=== PATIENT | female | born 1980 | race American Indian/Alaskan Native ===

== ENCOUNTER 2017-01-06 19:10 | Emergency (ER) | payer OTHER ==
[2017-01-06 19:36] VITALS: BP 172/120
[2017-01-06] MEDS ORDERED: CATAPRES PO ONE (19:37)
== END 2017-01-07 02:27 | disposition left against medical advice (07) ==
LOC: ED 19:10
DX: G43.909 Migraine, unspecified, not intractable, without status migrainosus (principal); R11.2 Nausea with vomiting, unspecified; Z53.21 Procedure and treatment not carried out due to patient leaving prior to being seen by health care provider

== ENCOUNTER 2017-01-11 21:08 | Emergency (ER) | payer SELFPAY ==
[2017-01-11] MEDS ORDERED: CATAPRES ONE (21:59)
[2017-01-11] MEDS ORDERED: TYLENOL ONE (21:59)
[2017-01-11] MEDS ORDERED: TYLENOL PO ONE (22:00)
[2017-01-11] MEDS ORDERED: CATAPRES PO ONE (22:00)
[2017-01-11 23:21] LABS: Basophils % (Auto) 0.8 % (0.0-1.8); Eosinophils % (Auto) 1.5 % (0.0-4.3); Hemoglobin 12.6 gm/dl (10.1-14.3); Mean Corpuscular HGB Conc 32 % (30-34); Mean Corpuscular Hemoglobin 27 pg (28-32); Mean Corpuscular Volume 82 fl (79-97); Platelet Count 278 K/mm3 (140-440); Red Blood Count 4.75 M/mm3 (3.65-5.03); Red Cell Distribution Width 13.8 % (13.2-15.2)
[2017-01-11 23:32] LABS: INR 0.97 (0.87-1.13)
[2017-01-11 23:33] LABS: Partial Thromboplastin Time 30.7 Sec. (24.2-36.6)
[2017-01-11 23:43] LABS: Anion Gap 15 mmol/L; BUN/Creatinine Ratio 16.66; Blood Urea Nitrogen 10 mg/dL (7-17); Calcium 9.4 mg/dL (8.4-10.2); Carbon Dioxide 28 mmol/L (22-30); Chloride 96.7 mmol/L (98-107); Glucose 92 mg/dL (65-100); Potassium 3.6 mmol/L (3.6-5.0); Sodium 136 mmol/L (137-145)
[2017-01-12] MEDS ORDERED: TORADOL IV ONE (02:29)
[2017-01-12] MEDS ORDERED: BENADRYL IV ONE (02:29)
[2017-01-12] MEDS ORDERED: REGLAN IV ONE (02:29)
[2017-01-12] MEDS ORDERED: NACL 0.9% 1000 ML 1,000 ML IV ONE (02:29)
--- NOTE | 2017-01-12 02:29 | Emergency Department Report ---
ED General Adult HPI - General Chief complaint: High BP Stated complaint: MIGRANE,TOOTHACHE,NUMBNESS Time Seen by Provider: 01/12/17 02:18 Source: patient, RN notes reviewed, old records reviewed Mode of arrival: Ambulatory Limitations: No Limitations - History of Present Illness Initial comments: This is a 36-year-old female. She is previously unknown to me. She does not have a local primary care doctor. The patient presents to the ER complaining of headache. The headache feels similar to prior migraines. The patient reports that she has a formally established diagnosis of migraines. The headache is not sudden or thunderclap in nature. It did not reach maximal intensity within an hour. It is not the worse headache of her life. Headache is frontal and bitemporal. It is intermittent for the past week. It worsens with exposure to light and loud sound. It is associated with numbness at the fingertips of her second, third, fourth digit. It is also associated with numbness on the dorsal aspect of her right foot. There is no proximal extremity weakness or numbness. There is no midline neck pain. There is no ataxia. There is no chest pain or shortness of breath. To me, the patient admits to chronic dental pain, but reports that this is not new, worse and different when compared to baseline. -: Gradual Location: head Severity scale (0 -10): 10 Quality: aching Consistency: constant Improves with: medication Worsens with: other (per hpi) Associated Symptoms: headaches. denies: confusion, chest pain, cough, diaphoresis, fever/chills, loss of appetite, malaise, rash, shortness of breath , syncope, weakness - Related Data Home Medications Medication Instructions Recorded Confirmed Last Taken Metoprolol [Lopressor TAB] 50 mg PO QDAY 06/06/16 06/07/16 06/07/16 09:00 Previous Rx's Medication Instructions Recorded Last Taken Type Cyclobenzaprine HCl [Flexeril 5 MG 5 mg PO Q8HR PRN #10 tab 06/06/16 06/07/16 09 :00 Rx TAB] Ketorolac [Toradol] 10 mg PO Q6H PRN #20 tablet 01/12/17 Unknown Rx Allergies Allergy/AdvReac Type Severity Reaction Status Date / Time morphine Allergy Angioedema Verified 06/07/16 08:56 ED Review of Systems ROS: Stated complaint: MIGRANE,TOOTHACHE,NUMBNESS Other details as noted in HPI Constitutional: denies: fever Eyes: denies: vision change ENT: denies: epistaxis Respiratory: denies: orthopnea Cardiovascular: denies: palpitations Gastrointestinal: denies: abdominal pain Genitourinary: denies: urgency Skin: denies: lesions Neurological: headache Psychiatric: anxiety ED Past Medical Hx - Past Medical History Previous Medical History?: Yes Hx Hypertension: Yes Hx Headaches / Migraines: Yes Hx Tuberculosis: Yes Additional medical history: heart murmur,various veins - Surgical History Past Surgical History?: Yes Hx Appendectomy: Yes Additional Surgical History: tubaligation,left carpel tunnel surgery - Social History Smoking Status: Never Smoker Substance Use Type: None - Medications Home Medications: Home Medications Medication Instructions Recorded Confirmed Last Taken Type Cyclobenzaprine HCl [Flexeril 5 MG 5 mg PO Q8HR PRN #10 tab 06/06/16 06/07/16 09:00 Rx TAB] Metoprolol [Lopressor TAB] 50 mg PO QDAY 06/06/16 06/07/16 06/07/16 09:00 History Ketorolac [Toradol] 10 mg PO Q6H PRN #20 tablet 01/12/17 Unknown Rx ED Physical Exam - General Limitations: No Limitations General appearance: alert, in no apparent distress - Head Head exam: Present: atraumatic, normocephalic - Eye Eye exam: Present: normal appearance, PERRL, EOMI, other (visual acuity intact to color perception, finger counting, reading at a close distance). Absent: nystagmus - ENT ENT exam: Present: normal exam, normal orophraynx, mucous membranes moist, normal external ear exam - Neck Neck exam: Present: normal inspection, full ROM. Absent: tenderness, meningismus - Respiratory Respiratory exam: Present: normal lung sounds bilaterally. Absent: respiratory distress, wheezes, rales, rhonchi, stridor, decreased breath sounds - Cardiovascular Cardiovascular Exam: Present: regular rate, normal rhythm, normal heart sounds. Absent: bradycardia, tachycardia, irregular rhythm, systolic murmur, diastolic murmur, rubs, gallop - GI/Abdominal GI/Abdominal exam: Present: soft, normal bowel sounds. Absent: distended, tenderness, guarding, rebound, rigid, pulsatile mass - Extremities Exam Extremities exam: Present: normal inspection, full ROM, normal capillary refill. Absent: tenderness, pedal edema, joint swelling, calf tenderness - Back Exam Back exam: Present: normal inspection, full ROM. Absent: tenderness, CVA tenderness (R), CVA tenderness (L), muscle spasm, paraspinal tenderness - Neurological Exam Neurological exam: Present: alert, oriented X3, normal gait, other (Extraocular movements intact. Tongue midline. No facial droop. Facial sensation intact to light touch in the V1, V2, V3 distribution bilaterally. 5 and 5 strength in 4 extremities.. Sensation is intact to light touch in 4 extremities.). Absent : motor sensory deficit - Psychiatric Psychiatric exam: Present: anxious - Skin Skin exam: Present: warm, dry, intact, normal color. Absent: rash ED Course Vital Signs 01/11/17 01/11/17 01/12/17 21:50 22:00 00:31 Temperature 97.2 F L Pulse Rate 86 86 85 Respiratory 20 20 Rate Blood Pressure 171/122 143/106 Blood Pressure 171/122 [Right] O2 Sat by Pulse 100 100 Oximetry 01/12/17 01/12/17 01/12/17 01:43 01:50 02:00 Temperature Pulse Rate 79 69 Respiratory 16 12 Rate Blood Pressure 146/99 147/102 Blood Pressure [Right] O2 Sat by Pulse 100 100 100 Oximetry 01/12/17 01/12/17 01/12/17 02:10 02:20 02:30 Temperature Pulse Rate 65 65 70 Respiratory 13 13 13 Rate Blood Pressure 147/102 147/102 138/99 Blood Pressure [Right] O2 Sat by Pulse 100 100 100 Oximetry 01/12/17 01/12/17 01/12/17 02:40 02:50 03:00 Temperature Pulse Rate 80 85 82 Respiratory 17 14 13 Rate Blood Pressure 147/102 147/102 142/98 Blood Pressure [Right] O2 Sat by Pulse 100 100 97 Oximetry 01/12/17 01/12/17 03:10 03:20 Temperature Pulse Rate 73 70 Respiratory 11 L 11 L Rate Blood Pressure 142/98 142/98 Blood Pressure [Right] O2 Sat by Pulse 100 100 Oximetry - Reevaluation(s) Reevaluation #1: 01/12/17 03:48 Differential diagnosis: Migraine headache, tension headache, cluster headache, nonspecific headache syndrome, elevated blood pressure/incidental hypertension Assessment and plan: 36-year-old female with headache and numbness in her fingertips and dorsal foot. Currently has a GCS of 15, NIH score of 0. Sensation intact to light touch, pinprick and proprioception in 4 extremities. The patient felt markedly improved after symptomatic therapy. A repeat neurologic examination is unremarkable, and she is resting comfortably at the time. She has no chest pain or shortness of breath, she can follow up with an outpatient primary care doctor for her elevated blood pressure, outpatient dentist for her chronic dental pain. She will be discharged at this time. Return precautions are reviewed. EKG is ordered by nurse prior to my evaluation , patient not having any chest pain or shortness of breath, patient is young, does not have any pulmonary embolus or DVT risk factors, is low risk by well's criteria, perc negative, low risk by DAVION score. 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 Reevaluation #2: 01/12/17 03:52 patient states she is not ED Medical Decision Making - Lab Data Result diagrams: 01/11/17 23:00 01/11/17 23:00 Vital Signs 01/11/17 01/11/17 01/12/17 21:50 22:00 00:31 Temperature 97.2 F L Pulse Rate 86 86 85 Respiratory 20 20 Rate Blood Pressure 171/122 143/106 Blood Pressure 171/122 [Right] O2 Sat by Pulse 100 100 Oximetry 01/12/17 01/12/17 01/12/17 01:43 01:50 02:00 Temperature Pulse Rate 79 69 Respiratory 16 12 Rate Blood Pressure 146/99 147/102 Blood Pressure [Right] O2 Sat by Pulse 100 100 100 Oximetry 01/12/17 01/12/17 01/12/17 02:10 02:20 02:30 Temperature Pulse Rate 65 65 70 Respiratory 13 13 13 Rate Blood Pressure 147/102 147/102 138/99 Blood Pressure [Right] O2 Sat by Pulse 100 100 100 Oximetry 01/12/17 01/12/17 01/12/17 02:40 02:50 03:00 Temperature Pulse Rate 80 85 82 Respiratory 17 14 13 Rate Blood Pressure 147/102 147/102 142/98 Blood Pressure [Right] O2 Sat by Pulse 100 100 97 Oximetry 01/12/17 01/12/17 01/12/17 03:10 03:20 03:30 Temperature Pulse Rate 73 70 67 Respiratory 11 L 11 L 11 L Rate Blood Pressure 142/98 142/98 135/95 Blood Pressure [Right] O2 Sat by Pulse 100 100 100 Oximetry 01/12/17 03:40 Temperature Pulse Rate 67 Respiratory 10 L Rate Blood Pressure 135/95 Blood Pressure [Right] O2 Sat by Pulse 100 Oximetry Lab Results 01/11/17 01/11/17 01/11/17 Range/Units 23:00 23:00 23:00 WBC 8.0 (4.5-11.0) K/mm3 RBC 4.75 (3.65-5.03) M/mm3 Hgb 12.6 (10.1-14.3) gm/dl Hct 39.0 (30.3-42.9) % MCV 82 (79-97) fl MCH 27 L (28-32) pg MCHC 32 (30-34) % RDW 13.8 (13.2-15.2) % Plt Count 278 (140-440) K/mm3 Lymph % (Auto) 26.7 (13.4-35.0) % Barbour % (Auto) 6.8 (0.0-7.3) % Eos % (Auto) 1.5 (0.0-4.3) % Baso % (Auto) 0.8 (0.0-1.8) % Lymph # 2.1 (1.2-5.4) K/mm3 Barbour # 0.5 (0.0-0.8) K/mm3 Eos # 0.1 (0.0-0.4) K/mm3 Baso # 0.1 (0.0-0.1) K/mm3 Seg Neutrophils % 64.2 (40.0-70.0) % Seg Neutrophils # 5.1 (1.8-7.7) K/mm3 PT 12.8 (12.2-14.9) Sec. INR 0.97 (0.87-1.13) APTT 30.7 (24.2-36.6) Sec. Sodium 136 L (137-145) mmol/L Potassium 3.6 (3.6-5.0) mmol/L Chloride 96.7 L (98-107) mmol/L Carbon Dioxide 28 (22-30) mmol/L Anion Gap 15 mmol/L BUN 10 (7-17) mg/dL Creatinine 0.6 L (0.7-1.2) mg/dL Estimated GFR > 60 ml/min BUN/Creatinine Ratio 16.66 % Glucose 92 (65-100) mg/dL Calcium 9.4 (8.4-10.2) mg/dL Troponin T < 0.010 (0.00-0.029) ng/mL HCG, Qual (Negative) 01/11/17 01/12/17 Range/Units 23:00 01:03 WBC (4.5-11.0) K/mm3 RBC (3.65-5.03) M/mm3 Hgb (10.1-14.3) gm/dl Hct (30.3-42.9) % MCV (79-97) fl MCH (28-32) pg MCHC (30-34) % RDW (13.2-15.2) % Plt Count (140-440) K/mm3 Lymph % (Auto) (13.4-35.0) % Barbour % (Auto) (0.0-7.3) % Eos % (Auto) (0.0-4.3) % Baso % (Auto) (0.0-1.8) % Lymph # (1.2-5.4) K/mm3 [place]bour # (0.0-0.8) K/mm3 Eos # (0.0-0.4) K/mm3 Baso # (0.0-0.1) K/mm3 Seg Neutrophils % (40.0-70.0) % Seg Neutrophils # (1.8-7.7) K/mm3 PT (12.2-14.9) Sec. INR (0.87-1.13) APTT (24.2-36.6) Sec. Sodium (137-145) mmol/L Potassium (3.6-5.0) mmol/L Chloride (98-107) mmol/L Carbon Dioxide (22-30) mmol/L Anion Gap mmol/L BUN (7-17) mg/dL Creatinine (0.7-1.2) mg/dL Estimated GFR ml/min BUN/Creatinine Ratio % Glucose (65-100) mg/dL Calcium (8.4-10.2) mg/dL Troponin T < 0.010 (0.00-0.029) ng/mL HCG, Qual Negative (Negative) - EKG Data -: EKG Interpreted by Me Rate: normal - EKG Data 01/12/17 03:50 Normal sinus, 69 beats per minute, normal intervals, normal axis, T-wave inversion V2 and V3. Abnormal EKG, not morphologically consistent with STEMI. Critical care attestation.: If time is entered above; I have spent that time in minutes in the direct care of this critically ill patient, excluding procedure time. ED Disposition Clinical Impression: Headache, Elevated blood pressure Disposition: DISCHARGED TO HOME OR SELFCARE Is pt being admited?: No Does the pt Need Aspirin: No Condition: Stable Instructions: Acute Headache (ED), Hypertension (ED) Additional Instructions: Take the pain medication as directed. Follow up with a primary care doctor within the next 10-14 days. Please note that blood pressure was elevated. It is very important to closely follow up with an outpatient primary care doctor for your hypertension/elevated blood pressure. Complications of hypertension/ elevated blood pressure includes stroke, heart attack, disability, , paralysis, loss of quality of life. Dr. Roberto Coley is a local primary care doctor. Follow-up with the neurology specialist within the next month for headaches. Dr. Lucio is a local neurology specialist. EKG demonstrated nonspecific abnormalities, which may be normal for your age. However, you should follow up with either your primary care doctor or motorcycle repair shop supervisor for your EKG abnormalities. Dr. Gutierrez is a local motorcycle repair shop supervisor. Follow-up with the senior accounting specialist within the next 2-3 weeks for your abnormal EKG. Return to the ER right away with new pain, worsened pain, migration of pain, fevers or chills, intractable nausea or vomiting, inability to tolerate liquid feeds. Referrals: PRIMARY CARE, [Primary Care Provider] - 3-5 Days ROBERTO COLEY MD [Staff Physician] - 3-5 Days GRAHAM GUTIERREZ MD [Staff Physician] - 3-5 Days SEBAS LUCIO MD [Staff Physician] - 3-5 Days
[2017-01-12 03:49] VITALS: BP 135/95
== END 2017-01-12 04:09 | disposition home or self-care (01) ==
LOC: ED 21:08
DX: R51 Headache (principal); I10 Essential (primary) hypertension; G43.909 Migraine, unspecified, not intractable, without status migrainosus
CPT/HCPCS: 36415; 80048; 84484; 84703; 85025; 85610; 85730; 93005; 93010; 96361; 96374; 96375; 99284; J1200; J1885; J2765; J7030

== ENCOUNTER 2017-06-06 13:27 | Emergency (ER) | payer OTHER ==
[2017-06-06 14:31] LABS: Basophils % (Auto) 0.7 % (0.0-1.8); Hematocrit 39.8 % (30.3-42.9); Hemoglobin 13.1 gm/dl (10.1-14.3); Mean Corpuscular HGB Conc 33 % (30-34); Mean Corpuscular Hemoglobin 26 pg (28-32); Mean Corpuscular Volume 80 fl (79-97); Platelet Count 246 K/mm3 (140-440); Red Blood Count 4.95 M/mm3 (3.65-5.03); Red Cell Distribution Width 13.9 % (13.2-15.2); White Blood Count 6.8 K/mm3 (4.5-11.0)
[2017-06-06 14:38] LABS: Bilirubin,Urine NEG (Negative); Blood,Urine SM (Negative); Ketones,Urine NEG (Negative); Leukocyte Esterase,Urine NEG (Negative); Mucus,Urine FEW /HPF; Nitrite,Urine NEG (Negative); Protein,Urine <15 mg/dL mg/dL (Negative); Urobilinogen,Urine < 2.0 mg/dL (<2.0); WBC,Urine < 1.0 /HPF (0.0-6.0)
[2017-06-06 14:54] LABS: Alanine Aminotransferase 23 units/L (7-56); Albumin 4.5 g/dL (3.9-5); Albumin/Globulin Ratio 1.5 %; Alkaline Phosphatase 52 units/L (35-129); Anion Gap 19 mmol/L; BUN/Creatinine Ratio 14.28; Blood Urea Nitrogen 10 mg/dL (7-17); Calcium 8.8 mg/dL (8.4-10.2); Carbon Dioxide 25 mmol/L (22-30); Glucose 88 mg/dL (65-100); Lipase 26 units/L (13-60); Potassium 3.9 mmol/L (3.6-5.0); Sodium 139 mmol/L (137-145); Total Protein 7.5 g/dL (6.3-8.2)
--- NOTE | 2017-06-06 20:57 | Emergency Department Report ---
ED Abdominal Pain HPI - General Chief Complaint: Abdominal Pain Stated Complaint: POSS GALLSTONE Time Seen by Provider: 06/06/17 20:47 Source: patient, RN notes reviewed, old records reviewed Mode of arrival: Ambulatory Limitations: No Limitations - History of Present Illness Initial Comments: This is a 37-year-old female. I have previously evaluated her. She reports her [facility] doctor is Dr. Sen. She was sent to the ER to exclude small bowel obstruction. The patient complains of bilateral lower quadrant abdominal pain intermittently for one month. There is no vomiting or diaphoresis. There is no chest pain or shortness of breath. No irritative or obstructive urinary symptoms. The pain is achy, increases with palpation, decreases with rest. Patient denies vaginal bleeding, vaginal discharge, reports one partner, denies a history of STDs that she is aware of. MD Complaint: abdominal pain -: Gradual Location: LLQ, RLQ Migration to: no migration Severity scale (0 -10): 8 Quality: cramping, aching Consistency: intermittent Improves With: rest Worsens With: movement Associated Symptoms: denies: dysuria - Related Data Home Medications Medication Instructions Recorded Confirmed Last Taken Amitriptyline [Elavil] 25 mg PO QHS 06/06/17 06/06/17 06/05/17 Metoprolol [Lopressor TAB] 50 mg PO BID 06/06/17 06/06/17 06/06/17 cloNIDine [Catapres] 0.2 mg PO TID 06/06/17 06/06/17 06/06/17 Previous Rx's Medication Instructions Recorded Last Taken Type Ibuprofen [Motrin] 600 mg PO Q8H PRN #30 tablet 06/07/17 Unknown Rx Ondansetron [Zofran Odt] 4 mg PO QID PRN #20 tab.rapdis 06/07/17 Unknown Rx Polyethylene Glycol 3350 [Miralax 17 gm PO QDAY #30 packet 06/07/17 Unknown Rx 3350] Allergies Allergy/AdvReac Type Severity Reaction Status Date / Time morphine Allergy Angioedema Verified 06/06/17 20:36 ED Review of Systems ROS: Stated complaint: POSS GALLSTONE Other details as noted in HPI Constitutional: denies: fever Eyes: denies: vision change ENT: denies: epistaxis Respiratory: denies: cough Cardiovascular: denies: chest pain Gastrointestinal: abdominal pain, constipation Genitourinary: denies: dysuria Musculoskeletal: denies: back pain Skin: denies: lesions ED Past Medical Hx - Past Medical History Previous Medical History?: Yes Hx Hypertension: Yes Hx Congestive Heart Failure: No Hx Diabetes: No Hx Headaches / Migraines: Yes (migraines) Hx Asthma: No Hx Tuberculosis: Yes Additional medical history: heart murmur,various veins - Surgical History Past Surgical History?: Yes Hx Appendectomy: Yes Additional Surgical History: tubaligation,left carpel tunnel surgery - Social History Smoking Status: Never Smoker Substance Use Type: None - Medications Home Medications: Home Medications Medication Instructions Recorded Confirmed Last Taken Type Amitriptyline [Elavil] 25 mg PO QHS 06/06/17 06/06/17 06/05/17 History Metoprolol [Lopressor TAB] 50 mg PO BID 06/06/17 06/06/17 06/06/17 History cloNIDine [Catapres] 0.2 mg PO TID 06/06/17 06/06/17 06/06/17 History Ibuprofen [Motrin] 600 mg PO Q8H PRN #30 tablet 06/07/17 Unknown Rx Ondansetron [Zofran Odt] 4 mg PO QID PRN #20 tab.rapdis 06/07/17 Unknown Rx Polyethylene Glycol 3350 [Miralax 17 gm PO QDAY #30 packet 06/07/17 Unknown Rx 3350] ED Physical Exam - General Limitations: No Limitations General appearance: alert, in no apparent distress - Head Head exam: Present: atraumatic, normocephalic - Eye Eye exam: Present: normal appearance, EOMI. Absent: nystagmus - ENT ENT exam: Present: normal exam, normal orophraynx, mucous membranes moist, normal external ear exam - Neck Neck exam: Present: normal inspection, full ROM. Absent: tenderness, meningismus - Respiratory Respiratory exam: Present: normal lung sounds bilaterally. Absent: respiratory distress, wheezes, rales, rhonchi, stridor, chest wall tenderness, accessory muscle use, decreased breath sounds - Cardiovascular Cardiovascular Exam: Present: regular rate, normal rhythm. Absent: bradycardia , tachycardia, irregular rhythm, systolic murmur, diastolic murmur, rubs, gallop - GI/Abdominal GI/Abdominal exam: Present: soft, tenderness (there is right lower quadrant, suprapubic and left lower quadrant tenderness), normal bowel sounds. Absent: distended, guarding, rebound, rigid - External exam: Present: normal external exam Speculum exam: Present: normal speculum exam Bi-manual exam: Present: cervical motion tendernes, adnexal tenderness (there is right-sided adnexal tenderness), uterine tenderness, other (escorted by SINGH Canales) - Extremities Exam Extremities exam: Present: normal inspection, full ROM, normal capillary refill. Absent: pedal edema, joint swelling, calf tenderness - Back Exam Back exam: Present: normal inspection, full ROM. Absent: tenderness, CVA tenderness (R), CVA tenderness (L), muscle spasm, paraspinal tenderness, vertebral tenderness - Neurological Exam Neurological exam: Present: alert, oriented X3, normal gait, other (Extraocular movements intact. Tongue midline. No facial droop. Facial sensation intact to light touch in the V1, V2, V3 distribution bilaterally. 5 and 5 strength in 4 extremities.. Sensation is intact to light touch in 4 extremities.). Absent : motor sensory deficit - Psychiatric Psychiatric exam: Present: normal affect, normal mood - Skin Skin exam: Present: warm, dry, intact, normal color. Absent: rash ED Course Vital Signs 06/06/17 06/06/17 06/06/17 13:46 20:38 21:00 Temperature 98.1 F Pulse Rate 88 90 80 Respiratory 18 20 20 Rate Blood Pressure 169/115 Blood Pressure 175/122 144/99 [Left] O2 Sat by Pulse 100 100 100 Oximetry 06/06/17 23:51 Temperature Pulse Rate 79 Respiratory 18 Rate Blood Pressure Blood Pressure 152/96 [Left] O2 Sat by Pulse 98 Oximetry ED Medical Decision Making - Lab Data Result diagrams: 06/06/17 14:12 06/06/17 14:12 Vital Signs 06/06/17 06/06/17 06/06/17 13:46 20:38 21:00 Temperature 98.1 F Pulse Rate 88 90 80 Respiratory 18 20 20 Rate Blood Pressure 169/115 Blood Pressure 175/122 144/99 [Left] O2 Sat by Pulse 100 100 100 Oximetry 06/06/17 23:51 Temperature Pulse Rate 79 Respiratory 18 Rate Blood Pressure Blood Pressure 152/96 [Left] O2 Sat by Pulse 98 Oximetry Lab Results 06/06/17 06/06/17 06/06/17 Range/Units 14:07 14:07 14:12 WBC 6.8 (4.5-11.0) K/mm3 RBC 4.95 (3.65-5.03) M/mm3 Hgb 13.1 (10.1-14.3) gm/dl Hct 39.8 (30.3-42.9) % MCV 80 (79-97) fl MCH 26 L (28-32) pg MCHC 33 (30-34) % RDW 13.9 (13.2-15.2) % Plt Count 246 (140-440) K/mm3 Lymph % (Auto) 31.8 (13.4-35.0) % Adams % (Auto) 7.4 H (0.0-7.3) % Eos % (Auto) 2.0 (0.0-4.3) % Baso % (Auto) 0.7 (0.0-1.8) % Lymph # 2.2 (1.2-5.4) K/mm3 Adams # 0.5 (0.0-0.8) K/mm3 Eos # 0.1 (0.0-0.4) K/mm3 Baso # 0.0 (0.0-0.1) K/mm3 Seg Neutrophils % 58.1 (40.0-70.0) % Seg Neutrophils # 4.0 (1.8-7.7) K/mm3 Sodium (137-145) mmol/L Potassium (3.6-5.0) mmol/L Chloride (98-107) mmol/L Carbon Dioxide (22-30) mmol/L Anion Gap mmol/L BUN (7-17) mg/dL Creatinine (0.7-1.2) mg/dL Estimated GFR ml/min BUN/Creatinine Ratio % Glucose (65-100) mg/dL Calcium (8.4-10.2) mg/dL Total Bilirubin (0.1-1.2) mg/dL AST (5-40) units/L ALT (7-56) units/L Alkaline Phosphatase (35-129) units/L Total Protein (6.3-8.2) g/dL Albumin (3.9-5) g/dL Albumin/Globulin Ratio % Lipase (13-60) units/L HCG, Quant (0-4) mIU/mL Urine Color Straw (Yellow) Urine Turbidity Clear (Clear) Urine pH 6.0 (5.0-7.0) Ur Specific Marcellus 1.009 (1.003-1.030) Urine Protein <15 mg/dl (Negative) mg/dL Urine Glucose (UA) Neg (Negative) mg/dL Urine Ketones Neg (Negative) mg/dL Urine Blood Sm (Negative) Urine Nitrite Neg (Negative) Urine Bilirubin Neg (Negative) Urine Urobilinogen < 2.0 (<2.0) mg/dL Ur Leukocyte Esterase Neg (Negative) Urine WBC (Auto) < 1.0 (0.0-6.0) /HPF Urine RBC (Auto) 1.0 (0.0-6.0) /HPF U Epithel Cells (Auto) < 1.0 (0-13.0) /HPF Urine Mucus Few /HPF Urine HCG, Qual Negative (Negative) 06/06/17 06/06/17 Range/Units 14:12 21:30 WBC (4.5-11.0) K/mm3 RBC (3.65-5.03) M/mm3 Hgb (10.1-14.3) gm/dl Hct (30.3-42.9) % MCV (79-97) fl MCH (28-32) pg MCHC (30-34) % RDW (13.2-15.2) % Plt Count (140-440) K/mm3 Lymph % (Auto) (13.4-35.0) % Adams % (Auto) (0.0-7.3) % Eos % (Auto) (0.0-4.3) % Baso % (Auto) (0.0-1.8) % Lymph # (1.2-5.4) K/mm3 Adams # (0.0-0.8) K/mm3 Eos # (0.0-0.4) K/mm3 Baso # (0.0-0.1) K/mm3 Seg Neutrophils % (40.0-70.0) % Seg Neutrophils # (1.8-7.7) K/mm3 Sodium 139 (137-145) mmol/L Potassium 3.9 (3.6-5.0) mmol/L Chloride 99.0 (98-107) mmol/L Carbon Dioxide 25 (22-30) mmol/L Anion Gap 19 mmol/L BUN 10 (7-17) mg/dL Creatinine 0.7 (0.7-1.2) mg/dL Estimated GFR > 60 ml/min BUN/Creatinine Ratio 14.28 % Glucose 88 (65-100) mg/dL Calcium 8.8 (8.4-10.2) mg/dL Total Bilirubin 0.30 (0.1-1.2) mg/dL AST 19 (5-40) units/L ALT 23 (7-56) units/L Alkaline Phosphatase 52 (35-129) units/L Total Protein 7.5 (6.3-8.2) g/dL Albumin 4.5 (3.9-5) g/dL Albumin/Globulin Ratio 1.5 % Lipase 26 (13-60) units/L HCG, Quant < 2 (0-4) mIU/mL Urine Color (Yellow) Urine Turbidity (Clear) Urine pH (5.0-7.0) Ur Specific Marcellus (1.003-1.030) Urine Protein (Negative) mg/dL Urine Glucose (UA) (Negative) mg/dL Urine Ketones (Negative) mg/dL Urine Blood (Negative) Urine Nitrite (Negative) Urine Bilirubin (Negative) Urine Urobilinogen (<2.0) mg/dL Ur Leukocyte Esterase (Negative) Urine WBC (Auto) (0.0-6.0) /HPF Urine RBC (Auto) (0.0-6.0) /HPF U Epithel Cells (Auto) (0-13.0) /HPF Urine Mucus /HPF Urine HCG, Qual (Negative) - Radiology Data Radiology results: report reviewed, image reviewed CT scan demonstrates constipation. Appendix not identified, however no secondary signs of appendicitis. Pelvic ultrasound demonstrates nonspecific lesion on the uterus, may be a fibroid, tumor/emergency is not excluded. - Medical Decision Making Differential diagnosis: Ovarian cyst, ovarian torsion, appendicitis, pelvic inflammatory disease, urinary tract infection, constipation Assessment and plan: 37-year-old female with 2 weeks of intermittent cramping abdominal discomfort, patient indicates "it feels like something is moving inside of me." She had mild lower abdominal tenderness, with no rebound, guarding or peritoneal signs. CT scan demonstrates no evidence of appendicitis, the appendix itself is not identified. I highly doubt appendicitis given 2 weeks of symptoms and presence of constipation. History and physical as well as CT scan not consistent with bowel obstruction. Doubt pelvic inflammatory disease, however gonorrhea chlamydia is sent. Patient feels improved after pain medication, she is given copies of her ultrasound and CT scan report, and she is instructed to follow-up with her outpatient primary care pantry cook. She understands and not following up in a timely fashion may result an undiagnosed tumor/cancer/malignancy. Patient will be discharged at this time. Ovaries appear to be morphologically normal on ultrasound, there is no left-sided adnexal tenderness, given 2 weeks of symptoms, ultrasound findings, torsion very unlikely. Critical care attestation.: If time is entered above; I have spent that time in minutes in the direct care of this critically ill patient, excluding procedure time. ED Disposition Clinical Impression: Abdominal pain Disposition: - TO HOME OR SELFCARE Is pt being admited?: No Does the pt Need Aspirin: No Condition: Stable Instructions: Constipation (ED), High Fiber Diet (ED) Additional Instructions: Cultures were sent today, results will be available in the next 3-5 days. Please have your primary care pantry cook contact the medical records department to obtain culture results. CT scan demonstrated evidence of constipation. Increase water consumption to 6-8 cups of water per day. Eat plenty of fruits, fibers, vegetables. Follow-up with the primary care doctor or pantry cook within the next week to 10 days. Ultrasound demonstrated nonspecific findings on the uterus and reproductive organs, and this needs to be followed up by her pantry cook as recommended. Not following up as recommended they results and undiagnosed tumor /cancer/malignancy. Return to the ER right away with new pain, worsened pain, migration of pain, fevers, chills, confusion, intractable nausea or vomiting, inability to tolerate liquid feeds. Referrals: PRIMARY CARE, [Primary Care Provider] - 3-5 Days [facility] [Provider Group] - 3-5 Days [facility] [Provider Group] - 3-5 Days [facility] [Provider Group] - 3-5 Days
[2017-06-06] MEDS ORDERED: NACL 0.9% 1000 ML 1,000 ML IV ONE (21:28)
[2017-06-06] MEDS ORDERED: TORADOL IV ONE (21:28)
[2017-06-06] MEDS ORDERED: NACL ONE (22:27)
--- NOTE | 2017-06-06 23:37 | Cat Scan Report ---
FINAL REPORT PROCEDURE: CT ABDOMEN PELVIS W CON TECHNIQUE: Computerized axial tomography of the abdomen and pelvis was performed after the IV injection of iodinated nonionic contrast. HISTORY: lower abd pain COMPARISON: No prior studies are available for comparison. FINDINGS: Tiny left pleural effusion is seen. 9 millimeter cyst is seen in the spleen. No hepatic abnormalities are seen. The gallbladder and pancreas appear normal. The adrenal glands and abdominal aorta are normal in size. 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 Bladder appears normal. Mild low-density free pelvic fluid is seen. Mild fluid is seen in the endometrial canal. Two follicles are suspected in the left ovary and there may be a few tiny follicles in the right ovary. Appendix is not seen but no pericecal inflammation is seen. There is prominent constipation in the ascending, transverse, and descending colon. Sigmoid colon is decompressed with a small amount of fecal material in the rectum. No evidence of small bowel obstruction is seen. IMPRESSION: There is prominent constipation. Mild fluid is seen in the endometrial canal and correlation with stage of patient's menstrual cycle is recommended. Follicles are seen in the ovaries.
--- NOTE | 2017-06-06 23:44 | Ultrasound Report ---
FINAL REPORT PROCEDURE: US TRANSVAGINAL TECHNIQUE: Real-time transabdominal sonography in multiple planes of the pelvis was performed. The pelvic structures were not optimally visualized. Transvaginal sonography was then performed to better evaluate the structures and/or abnormalities described below with image documentation. Grayscale, color flow Doppler imaging and velocity spectral waveform analysis of the ovaries was employed (duplex imaging). CPT 60417, 84279, and 68393 HISTORY: pelvic pain COMPARISON: CT exam from same day FINDINGS: Uterus measures 8.8 cm in length. Vague slightly hypervascular area is seen in the anterior aspect of the uterine myometrium. This could be a fibroid but is not well seen on this study. It is not definitely identified on prior CT exam, either. Malignancy is not completely excluded and correlation with MRI is recommended. 5 millimeter cystic area is seen in the posterior uterine myometrium in the right side of the uterus, near this hypovascular area. Endometrial thickness is 6.1 millimeters. Fluid is seen in the lower uterine segment and cervix. Correlation with stage of patient's menstrual cycle is recommended. Right ovary measures 2.8 x 1.3 x 1.8 cm. A 1.2 cm cyst is seen in the right ovary. Bowel gas obscures the left ovary. No free pelvic fluid is seen. Tiny nabothian cyst is seen in the cervix. IMPRESSION: Hypervascular 2.6 cm vague area is seen in the anterior right side of the uterus near the fundus. This could be a fibroid but is not well seen on CT exam. Malignancy cannot be excluded given the increased vascularity. An adjacent small cyst is seen in the myometrium measuring 5 millimeters. Follow-up unenhanced and enhanced MRI of the pelvis is recommended to better evaluate these findings.
[2017-06-07 00:49] VITALS: BP 152/99
--- NOTE | 2017-06-07 01:58 | Ultrasound Report ---
FINAL REPORT EXAM: US PELVIS DUPLEX DOPPLER COMP HISTORY: pelvic pain TECHNIQUE: Transabdominal sonography of the pelvis. PRIORS: Endovaginal pelvic ultrasound of same date. FINDINGS: Overlying bowel gas limits examination somewhat. The uterus measures 8.8 x 4.5 x 5.6 cm. Ill-defined, isoechoic and somewhat hypervascular focus in the right anterior uterus near the fundus, seen much better on comparison study. Subcentimeter, cystic focus in right posterior uterus near the fundus. The endometrial stripe is within normal limits and measures 6 mm in AP dimension. Small amount of anechoic fluid in lower uterine segment and endocervical canal, also seen better on comparison study. The right ovary measures 2.8 x 1.3 x 1.8 cm and contains probable prominent follicle measuring 1.2 cm. The left ovary is not confidently identified by the gear technician. No adnexal masses or significant free peritoneal fluid. IMPRESSION: 1. Ill-defined, isoechoic and somewhat hypervascular focus in the right anterior uterine fundal region and small cystic focus in right posterior fundal region seen much better on comparison endovaginal examination, which may represent leiomyomatous or adenomyosis change, but is nonspecific. Exact etiology or significance uncertain, and clinical correlation along with followup suggested. 2. Probable follicular change in the right ovary. 3. Nonvisualization of the left ovary.
--- NOTE | 2017-06-07 09:39 | XRay Report ---
ABDOMEN RADIOGRAPHS INDICATION: Abdominal pain. COMPARISON: None similar. FINDINGS: Frontal abdominal radiographs demonstrate nonobstructive bowel gas pattern without focal suspicious calcifications, pneumatosis or pneumoperitoneum. Moderate colonic stool/possible constipation. Clear visualized lung bases. Unremarkable bones. CONCLUSION: Constipation without acute radiographic abnormality. Please correlate. Thank you for the opportunity to participate in this patient's care.
== END 2017-06-07 01:12 | disposition home or self-care (01) ==
LOC: ED 13:27
DX: R10.32 Left lower quadrant pain (principal); R10.31 Right lower quadrant pain; I10 Essential (primary) hypertension; G43.909 Migraine, unspecified, not intractable, without status migrainosus; Z88.5 Allergy status to narcotic agent
CPT/HCPCS: 36415; 74020; 74177; 76830; 80053; 81001; 81025; 83690; 84702; 85025; 87210; 87591; 93975; 96361; 96374; 99285; J1885; J7030; Q9967

== ENCOUNTER 2017-12-12 18:15 | Emergency (ER) | payer OTHER ==
[2017-12-12] MEDS ORDERED: ZOFRAN ODT PO ONE (20:10)
[2017-12-12] MEDS ORDERED: TORADOL IM ONE (20:10)
--- NOTE | 2017-12-12 20:10 | Emergency Department Report ---
Blank Doc - Documentation Documentation: Patient is a 37-year-old black female said 2 weeks of lower abdominal pain with nausea and vomiting. Patient now states she has a migraine headache as well. Patient was at a urgent care was told she has a "hernia that may rupture". Patient will have a CT scan to see what her actual problem is as well as labs and urinalysis
[2017-12-12 20:51] LABS: Basophils % (Auto) 0.3 % (0.0-1.8); Eosinophils % (Auto) 0.2 % (0.0-4.3); Hematocrit 41.4 % (30.3-42.9); Hemoglobin 13.7 gm/dl (10.1-14.3); Lymphocytes % (Auto) 23.7 % (13.4-35.0); Mean Corpuscular HGB Conc 33 % (30-34); Mean Corpuscular Hemoglobin 26 pg (28-32); Mean Corpuscular Volume 79 fl (79-97); Monocytes # (Auto) 0.5 K/mm3 (0.0-0.8); Monocytes % (Auto) 5.7 % (0.0-7.3); Platelet Count 315 K/mm3 (140-440); Red Blood Count 5.22 M/mm3 (3.65-5.03); Red Cell Distribution Width 14.8 % (13.2-15.2)
--- NOTE | 2017-12-12 21:09 | Emergency Department Report ---
ED Abdominal Pain HPI - General Chief Complaint: Abdominal Pain Stated Complaint: HERNIA Time Seen by Provider: 12/12/17 20:03 Source: patient Mode of arrival: Ambulatory Limitations: No Limitations - History of Present Illness Initial Comments: Patient is a 37-year-old black female said 2 weeks of lower abdominal pain with nausea and vomiting. Patient now states she has a migraine headache as well. Patient was at a urgent care was told she has a "hernia that may rupture". BP 159/111. Denies CP or SOB. denies back pain. MD Complaint: abdominal pain Onset/Timin -: week(s) Location: LLQ, suprapubic Migration to: no migration Severity scale (0 -10): 4 Quality: cramping Consistency: intermittent Improves With: rest Worsens With: movement Context: other (unknown) Associated Symptoms: nausea, vomiting, other (migraine headache). denies: diarrhea, fever, chills, constipation, dysuria, hematemesis, hematochezia, melena, hematuria, anorexia, syncope - Related Data Home Medications Medication Instructions Recorded Confirmed Last Taken Amitriptyline [Elavil] 25 mg PO QHS 06/06/17 06/06/17 06/05/17 Metoprolol [Lopressor TAB] 50 mg PO BID 06/06/17 06/06/17 06/06/17 cloNIDine [Catapres] 0.2 mg PO TID 06/06/17 06/06/17 06/06/17 Previous Rx's Medication Instructions Recorded Last Taken Type Ibuprofen [Motrin] 600 mg PO Q8H PRN #30 tablet 06/07/17 Unknown Rx Ondansetron [Zofran Odt] 4 mg PO QID PRN #20 tab.rapdis 06/07/17 Unknown Rx Polyethylene Glycol 3350 [Miralax 17 gm PO QDAY #30 packet 06/07/17 Unknown Rx 3350] Acetaminophen/Codeine [Tylenol 1 tab PO Q6H PRN #12 tab 12/12/17 Unknown Rx /Codeine # 3 tab] Naproxen [Naprosyn TAB] 500 mg PO BID PRN #12 tablet 12/12/17 Unknown Rx Promethazine [Phenergan TAB] 25 mg PO Q6HR PRN #12 tab 12/12/17 Unknown Rx Allergies Allergy/AdvReac Type Severity Reaction Status Date / Time morphine Allergy Angioedema Verified 06/06/17 20:36 ED Review of Systems ROS: Stated complaint: HERNIA Other details as noted in HPI Comment: All other systems reviewed and negative Constitutional: no symptoms reported ENT: denies: ear pain, throat pain Respiratory: no symptoms reported Cardiovascular: denies: chest pain, palpitations, dyspnea on exertion, edema, syncope, paroxysmal nocturnal dyspnea Gastrointestinal: abdominal pain, nausea, vomiting. denies: diarrhea, constipation, hematemesis, melena, hematochezia Genitourinary: denies: urgency, dysuria, frequency, hematuria, discharge Musculoskeletal: denies: back pain, joint swelling, arthralgia, myalgia Skin: denies: rash Neurological: headache. denies: weakness, numbness, paresthesias, confusion, abnormal gait, vertigo ED Past Medical Hx - Past Medical History Previous Medical History?: Yes Hx Hypertension: Yes Hx Congestive Heart Failure: No Hx Diabetes: No Hx Headaches / Migraines: Yes (migraines) Hx Asthma: No Hx Tuberculosis: Yes Additional medical history: heart murmur,various veins - Surgical History Past Surgical History?: Yes Hx Appendectomy: Yes Additional Surgical History: tubaligation,left carpel tunnel surgery - Family History Family history: hypertension - Social History Smoking Status: Never Smoker Substance Use Type: None - Medications Home Medications: Home Medications Medication Instructions Recorded Confirmed Last Taken Type Amitriptyline [Elavil] 25 mg PO QHS 06/06/17 06/06/17 06/05/17 History Metoprolol [Lopressor TAB] 50 mg PO BID 06/06/17 06/06/17 06/06/17 History cloNIDine [Catapres] 0.2 mg PO TID 06/06/17 06/06/17 06/06/17 History Ibuprofen [Motrin] 600 mg PO Q8H PRN #30 tablet 06/07/17 Unknown Rx Ondansetron [Zofran Odt] 4 mg PO QID PRN #20 tab.rapdis 06/07/17 Unknown Rx Polyethylene Glycol 3350 [Miralax 17 gm PO QDAY #30 packet 06/07/17 Unknown Rx 3350] Acetaminophen/Codeine [Tylenol 1 tab PO Q6H PRN #12 tab 12/12/17 Unknown Rx /Codeine # 3 tab] Naproxen [Naprosyn TAB] 500 mg PO BID PRN #12 tablet 12/12/17 Unknown Rx Promethazine [Phenergan TAB] 25 mg PO Q6HR PRN #12 tab 12/12/17 Unknown Rx ED Physical Exam - General Limitations: No Limitations General appearance: alert, in no apparent distress - Head Head exam: Present: atraumatic, normocephalic, normal inspection, other (normal exam) - Eye Eye exam: Present: normal appearance, PERRL, EOMI. Absent: conjunctival injection, nystagmus, periorbital swelling, periorbital tenderness Pupils: Present: normal accommodation - ENT ENT exam: Present: normal exam, normal orophraynx, mucous membranes moist - Neck Neck exam: Present: normal inspection, full ROM, other (no cspine tenderness). Absent: tenderness, meningismus, lymphadenopathy, thyromegaly - Respiratory Respiratory exam: Present: normal lung sounds bilaterally. Absent: respiratory distress, chest wall tenderness, accessory muscle use - Cardiovascular Cardiovascular Exam: Present: regular rate, normal rhythm, normal heart sounds. Absent: systolic murmur, diastolic murmur - GI/Abdominal GI/Abdominal exam: Present: soft, tenderness (pelvic area), normal bowel sounds. Absent: distended, guarding, rebound, rigid, organomegaly, mass, bruit , pulsatile mass, hernia - Extremities Exam Extremities exam: Present: normal inspection, full ROM, normal capillary refill , other (Extremities: No clubbing, cyanosis or edema. +2 pulses. No neurovascular compromise). Absent: tenderness, pedal edema, joint swelling, calf tenderness - Back Exam Back exam: Present: normal inspection, full ROM, other (ambulates without difficulties). Absent: tenderness, CVA tenderness (R), CVA tenderness (L), muscle spasm, paraspinal tenderness, vertebral tenderness, rash noted - Neurological Exam Neurological exam: Present: alert, oriented X3, normal gait, reflexes normal. Absent: motor sensory deficit - Expanded Neurological Exam Expanded Neurological exam: Absent: innattentive, memory loss-remote event, memory loss- recent event, ataxia, receptive aphasia, expressive aphasia, total aphasia, tremor, protecting the airway Patient oriented to: Present: person, place, time Speech: Present: fluid speech Cranial nerves: EOM's Intact: Normal, Gag Reflex: Normal, Tongue Deviation: Normal, Nystagmus: Normal Cerebellar function: Romberg: Normal Upper motor neuron: Pronator Drift: Normal, Sensory Extinction: Normal Sensory exam: Upper Extremity Light Touch: Normal, Upper Extremity Temperature: Normal, UE 2 Point Discrimination: Normal, Lower Extremity Light Touch: Normal, Lower Extremity Pin Prick: Normal, LE 2 Point Discrimination: Normal Motor strength exam: RUE: 5, LUE: 5, RLE: 5, LLE: 5 DTR: bicep (R): 2+, bicep (L): 2+, tricep (R): 2+, tricep (L): 2+, knee (R): 2+ , knee (L): 2+, ankle (R): 2+, ankle (L): 2+ Best Eye Response ([place]): (4) open spontaneously Best Motor Response ([place]): (6) obeys commands Best Verbal Response ([place]): (5) oriented [place] Total: 15 - Psychiatric Psychiatric exam: Present: normal affect, normal mood - Skin Skin exam: Present: warm, dry, intact, normal color. Absent: rash ED Course Vital Signs 12/12/17 12/12/17 12/12/17 18:24 20:18 23:24 Temperature 98 F Pulse Rate 98 H 90 Respiratory 16 0 L 18 Rate Blood Pressure 159/111 Blood Pressure 157/91 [Left] O2 Sat by Pulse 98 98 Oximetry 12/12/17 23:27 Temperature Pulse Rate 84 Respiratory 18 Rate Blood Pressure Blood Pressure 140/80 [Left] O2 Sat by Pulse 98 Oximetry Vital Signs 12/12/17 12/12/17 12/12/17 18:24 20:18 23:27 Temperature 98 F Pulse Rate 98 H 84 Respiratory 16 0 L 18 Rate Blood Pressure 159/111 Blood Pressure 140/80 [Left] O2 Sat by Pulse 98 98 Oximetry - Reevaluation(s) Reevaluation #1: 12/12/17 21:06 Patient receive Zofran 4 mg po and Toradol 60 mg IM in ED which helped pain and nausea. She is feeling better ED Medical Decision Making - Lab Data Result diagrams: 12/12/17 20:29 12/12/17 20:29 Lab Results 12/12/17 12/12/17 12/12/17 Range/Units 20:29 20:29 21:51 WBC 8.4 (4.5-11.0) K/mm3 RBC 5.22 H (3.65-5.03) M/mm3 Hgb 13.7 (10.1-14.3) gm/dl Hct 41.4 (30.3-42.9) % MCV 79 (79-97) fl MCH 26 L (28-32) pg MCHC 33 (30-34) % RDW 14.8 (13.2-15.2) % Plt Count 315 (140-440) K/mm3 Lymph % (Auto) 23.7 (13.4-35.0) % [place] % (Auto) 5.7 (0.0-7.3) % Eos % (Auto) 0.2 (0.0-4.3) % Baso % (Auto) 0.3 (0.0-1.8) % Lymph # 2.0 (1.2-5.4) K/mm3 [place] # 0.5 (0.0-0.8) K/mm3 Eos # 0.0 (0.0-0.4) K/mm3 Baso # 0.0 (0.0-0.1) K/mm3 Seg Neutrophils % 70.1 H (40.0-70.0) % Seg Neutrophils # 5.9 (1.8-7.7) K/mm3 Sodium 141 (137-145) mmol/L Potassium 3.8 (3.6-5.0) mmol/L Chloride 100.9 (98-107) mmol/L Carbon Dioxide 25 (22-30) mmol/L Anion Gap 19 mmol/L BUN 11 (7-17) mg/dL Creatinine 0.6 L (0.7-1.2) mg/dL Estimated GFR > 60 ml/min BUN/Creatinine Ratio 18 % Glucose 96 (65-100) mg/dL Calcium 8.9 (8.4-10.2) mg/dL Urine Color Yellow (Yellow) Urine Turbidity Clear (Clear) Urine pH 6.0 (5.0-7.0) Ur Specific [place] 1.023 (1.003-1.030) Urine Protein <15 mg/dl (Negative) mg/dL Urine Glucose (UA) Neg (Negative) mg/dL Urine Ketones Tr (Negative) mg/dL Urine Blood Neg (Negative) Urine Nitrite Neg (Negative) Ur Reducing Substances Not Reportable Urine Bilirubin Neg (Negative) Urine Ictotest Not Reportable Urine Urobilinogen 2.0 (<2.0) mg/dL Ur Leukocyte Esterase Neg (Negative) Urine WBC (Auto) 2.0 (0.0-6.0) /HPF Urine RBC (Auto) 12.0 (0.0-6.0) /HPF U Epithel Cells (Auto) < 1.0 (0-13.0) /HPF Urine Mucus 2+ /HPF Urine HCG, Qual Negative (Negative) - Radiology Data Radiology results: report reviewed CT scan Abdomen and Pelvis without contrast psssible small left ovarian cyst. No other abnormalities - Medical Decision Making ED course: Patient present to hospital c/o lower abdominal pain x 2 weeks and had gone to and was told she had a ruptured hernia. She is also c/o of migraine TOURE flare. She was given Torodal 60 mg IM for pain and zofran 4 mg ODT for nausea. CT scan of abdomen showed possible ovarian cyst. Labs stable. refer to radiology section for details on CT and lab section for details on labs. She is better and BP is also better. Patient is on Clonidine and Metoprolol at home. Patient discharged home with prescription for phenergan, naproxen and naproxen and to follow up with PCP. Critical care attestation.: If time is entered above; I have spent that time in minutes in the direct care of this critically ill patient, excluding procedure time. ED Disposition Clinical Impression: Migraine aura without headache, Elevated blood pressure reading with diagnosis of hypertension Abdominal pain Qualifiers: Abdominal location: unspecified location Qualified Code(s): R10.9 - Unspecified abdominal pain Nausea & vomiting Qualifiers: Vomiting type: unspecified Vomiting Intractability: non-intractable Qualified Code(s): R11.2 - Nausea with vomiting, unspecified Disposition: DC-01 TO HOME OR SELFCARE Is pt being admited?: No Does the pt Need Aspirin: No Condition: Stable Instructions: Migraine Headache (ED), Acute Nausea and Vomiting (ED), Abdominal Pain (ED), Hypertension (ED) Additional Instructions: Follow up with PCP 12/13/2017 return to ED if symptoms worsens Prescriptions: Acetaminophen/Codeine [Tylenol /Codeine # 3 tab] 1 tab PO Q6H PRN #12 tab PRN Reason: Pain Naproxen [Naprosyn TAB] 500 mg PO BID PRN #12 tablet PRN Reason: Pain Promethazine [Phenergan TAB] 25 mg PO Q6HR PRN #12 tab PRN Reason: Nausea Referrals: PRIMARY CARE, [Primary Care Provider] - 12/16/17 Forms: Work/School Release Form(ED)
[2017-12-12 21:12] LABS: BUN/Creatinine Ratio 18; Blood Urea Nitrogen 11 mg/dL (7-17); Calcium 8.9 mg/dL (8.4-10.2); Hemolysis Index 3
--- NOTE | 2017-12-12 22:03 | Cat Scan Report ---
FINAL REPORT PROCEDURE: CT abdomen and pelvis without contrast. TECHNIQUE: Computerized axial tomography of the abdomen and pelvis was performed without intravenous contrast. This study is performed without intravascular contrast material and its sensitivity for abdominal and pelvic pathology, including neoplasms, inflammation, abscess, free fluid, thrombosis, arterial dissection and infarction, is reduced compared with a contrast enhanced study. HISTORY: Lower abdominal pain. COMPARISON: CT abdomen and pelvis 06/06/2017. FINDINGS: The lung bases are clear. There are no pleural effusions. The heart size is normal. The liver, pancreas and spleen are grossly normal. There may be a small focal area of diminished attenuation in the periphery of the spleen. This could represent a cyst or small infarct. This could be better evaluated with a contrast enhanced study. This finding is of doubtful clinical significance. The gallbladder is present. The adrenal glands are not enlarged. Both kidneys appear normal in size and configuration. The abdominal aorta has a normal caliber. There is no retroperitoneal adenopathy. The unopacified gastrointestinal tract is unremarkable. The cecum appears to be on a long mesentery and is located in the right mid abdomen. I do not definitely identify the appendix. This study cannot exclude acute appendicitis. The bladder, uterus and adnexal regions are unremarkable. There is some low attenuation in the left adnexal region which probably represents an ovarian cyst. This measures 3.7 centimeters x 3.3 centimeters in cross-section. There is no fluid in the cul-de-sac. The regional skeleton appears intact. IMPRESSION: Small area of low attenuation within the spleen. Probable left ovarian cyst.
[2017-12-12 22:23] LABS: HCG Qualitative,Urine Negative (Negative)
[2017-12-12 22:28] LABS: Bilirubin,Urine NEG (Negative); Blood,Urine NEG (Negative); Color,Urine Yellow (Yellow); Mucus,Urine 2+ /HPF; Protein,Urine <15 mg/dL mg/dL (Negative)
[2017-12-12 23:28] VITALS: BP 140/80
== END 2017-12-12 23:27 | disposition home or self-care (01) ==
LOC: ED 18:15
DX: G43.109 Migraine with aura, not intractable, without status migrainosus (principal); I10 Essential (primary) hypertension; R10.2 Pelvic and perineal pain; R10.32 Left lower quadrant pain; Z98.51 Tubal ligation status; Z88.5 Allergy status to narcotic agent
CPT/HCPCS: 36415; 74176; 80048; 81001; 81025; 85025; 96372; 99284; J1885; Q0162

== ENCOUNTER 2017-12-31 06:08 | Observation (INO) | payer OTHER ==
[2017-12-27 10:51] LABS: Hematocrit 40.5 % (30.3-42.9); Hemoglobin 13.3 gm/dl (10.1-14.3); Mean Corpuscular HGB Conc 33 % (30-34); Mean Corpuscular Hemoglobin 26 pg (28-32); Mean Corpuscular Volume 80 fl (79-97); Platelet Count 284 K/mm3 (140-440); Red Blood Count 5.08 M/mm3 (3.65-5.03); Red Cell Distribution Width 15.4 % (13.2-15.2)
[2017-12-27 11:13] LABS: Alanine Aminotransferase 16 units/L (7-56); Albumin 4.5 g/dL (3.9-5); BUN/Creatinine Ratio 13; Blood Urea Nitrogen 9 mg/dL (7-17); Calcium 8.8 mg/dL (8.4-10.2); Hemolysis Index 7
--- NOTE | 2017-12-27 11:27 | Anesthesia Consultation ---
Anesthesia Consult and Med Hx Date of service: 12/27/17 - Airway Anesthetic Teeth Evaluation: Good ROM Head & Neck: Adequate Mental/Hyoid Distance: Adequate Mallampati Class: Class I Intubation Access Assessment: Good - Pulmonary Exam CTA: Yes - Cardiac Exam Cardiac Exam: RRR - Pre-Operative Health Status ASA Pre-Surgery Classification: ASA2 Proposed Anesthetic Plan: General - Pulmonary Hx Asthma: No Hx Pneumonia: No - Cardiovascular System Hx Hypertension: Yes (since 2005) Hx Heart Murmur: Yes - Central Nervous System Hx Psychiatric Problems: Yes (PTSD) - Other Systems Hx Cancer: No
--- NOTE | 2017-12-30 19:21 | History and Physical Report ---
History of Present Illness Date of examination: 12/25/17 Chief complaint: Chronic pelvic pain History of present illness: Past History : 3 Term Births: 2 Premature Births: 1 Living Children: 3 # 1 Weeks Gestation: 38 Delivery type: weight: 5'13 Comments: low lying placenta htn # 2 Weeks Gestation: 35 Delivery type: Infant Sex: Male weight: 5 Comments: group b strept. tried induction # 3 Weeks Gestation: 40 Delivery type: Sex: Male weight: 7'13 Comments: CP. no labor. was followed by [facility]. bowel obstruction. 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 inguinal area (L)carpal tunnel release Varicose vein stripped (L) posterior thigh Tubal Ligation Abnormal PAP: positive Infection History HIV Risk Eval: no Hx of STD: chlamydia Other: dx after the TL trich Active Medications (reviewed today): IBUPROFEN 800 MG ORAL TABLET (IBUPROFEN) 1 po TID (PRN) OXYCODONE-ACETAMINOPHEN 5-325 MG ORAL TABLET (OXYCODONE-ACETAMINOPHEN) 1-2po q6h CLONIDINE HCL 0.3 MG ORAL TABLET (CLONIDINE HCL) Current Allergies (reviewed today): MORPHINE (Critical) Past Medical History: Hypertension Cardiac palpitations [facility] H.Pylori treated Past Surgical History: Reviewed history from 12/04/2017 and no changes required: x 3 ablation age 33 (2012) Appendectomy 2011 enlarged lymph node removed from the right side. inguinal area (L)carpal tunnel release Varicose vein stripped (L) posterior thigh Tubal Ligation Family History Summary: Reviewed history and no changes required: 12/30/2017 Mother (biol.) - Has Family History of Hypertension - mother and sister - Entered On: 06/06/2017 Mother (biol.) - Has Family History of Diabetes - mother - Entered On: 06/06/2017 Other family member - Has No Family History of Biliary Tract Cancer - Entered On : 08/28/2017 Other family member - Has No Family History of Breast Cancer - Entered On: 2016 Other family member - Has No Family History of Brain Cancer - Entered On: 2016 Other family member - Has No Family History of Colon Cancer - Entered On: 2016 Other family member - Has No Family History of DVT/PE on OCP - Entered On: 2016 Other family member - Has No Family History of Kidney/Urinary Tract Cancer - Entered On: 08/28/2017 Other family member - Has No Family History of Ovarvian Cancer - Entered On: 08/28/2017 Other family member - Has No Family History of Pancreatic Cancer - Entered On: 08/28/2017 Other family member - Has No Family History of Stomach Cancer - Entered On: 08/28 Other family member - Has No Family History of Small Bowel Cancer - Entered On: 08/28/2017 Other family member - Has No Family History of Uterine Cancer - Entered On: 08/28 Social History: Reviewed history from 06/06/2017 and no changes required: Patient is active with . last coital episdoe 2 weeks ago Smoking History: Patient has never smoked. Previous Tobacco Use: Signed On 08/14/2017 Smoked Tobacco Use: Never smoker Smokeless Tobacco Use: Never Passive smoke exposure: no Drug use: no HIV high-risk behavior: no Previous Alcohol Use: Signed On 08/14/2017 Alcohol use: no Exercise: yes Times per week: occ Seatbelt use: 100 % Review of Systems General Denies fever, chills, sweats, anorexia, fatigue, weakness, malaise, weight loss and sleep disorder. Complains of pelvic pain. Denies vaginal discharge, incontinence, dysuria, hematuria, urinary frequency, amenorrhea, menorrhagia, abnormal vaginal bleeding, genital sores, decreased libido, painful sex, urinary urgency, hot flashes, vaginal dryness, vaginal itching and vaginal odor. CV Denies chest pains, palpitations, syncope, dyspnea on exertion, orthopnea, PND and peripheral edema. Resp Denies cough, dyspnea at rest, excessive sputum, hemoptysis, wheezing and pleurisy. GI Denies nausea, vomiting, diarrhea, constipation, change in bowel habits, abdominal pain, melena, hematochezia, jaundice, gas/bloating, indigestion/ heartburn, dysphagia and odynophagia. Endo Denies cold intolerance, heat intolerance, polydipsia, polyphagia, polyuria and unusual weight change. Breast Denies left breast lump, right breast lump, nipple discharge, bloody discharge from nipple, breast pain, abnormal mammogram and breast enlargement. MS Denies back pain, joint pain, joint swelling, muscle cramps, muscle weakness, stiffness, arthritis, sciatica, restless legs, leg pain at night and leg pain with exertion. Derm Denies rash, itching, dryness and suspicious lesions. Neuro Denies paralysis, paresthesias, headache, seizures, tremors, vertigo, transient blindness, frequent falls, frequent headaches and difficulty walking. Psych Denies depression, anxiety, irritability and mood swings. Eyes Denies blurring, diplopia, irritation, discharge, vision loss, eye pain and photophobia. ENT Denies earache, ear discharge, tinnitus, decreased hearing, nasal congestion, nosebleeds, sore throat and hoarseness. Allergy Denies urticaria, allergic rash, hay fever and recurrent infections. Heme Denies abnormal bruising, bleeding and enlarged lymph nodes. Physical Exam Appearance: well developed, well nourished, no acute distress Other Exams Abdomen: soft, non-tender, no masses, healed incisions Genitourinary Exam Vulva: normal, no lesions or discharge Urethral meatus: normal size and location, no lesions or discharge Urethra: no discharge Bladder: no cystocele Vagina: normal appearance, no discharge, lesions. No evidence of cystocele or rectocele. Cervix: no discharge or mucopius from the cervix.mid line. bilateral cmt. 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 No evidence of cystocele or rectocele. Cervix: no discharge or mucopius from the cervix.mid line. bilateral cmt. Uterus: fixed, difficult to palpate d/t guarding Adnexae: no masses or tenderness; difficult to palpate d/t guarding Impression & Recommendations: Problem # 1: Pelvic pain, chronic (ICD-789.09) (YDR31-N75.2) Consent reviewed and signed . Possible laparoscopy or laparotomy explained to patient. The risks and alternatives for this surgery were reviewed with the patient. She desires to proceed with hysterectomy. She was informed of possible bleeding, infection, injury to bowel, bladder, ureters or other adjacent organs. It was extensively explained to her that her pain may persist, recur or change in nature due to the difficulty with diagnosis chronic pelvic pain or development of adhesions. She declined other treatment options at this time. Questions were encouraged and answered. She desires ovarian consevation. She was informed she may require surgery later to have her ovaries removed for a benign or mailgnant condition The patient was instructed/informed the following: The normal length of hospital stay for this procedure. Nothing to eat or drink after midnight the evening prior to surgery. Clear liquids the day before surgery. Fleets enema the day prior to surgery. Pre-op instruction sheets given. Wound care instructions given. Infection precautions reviewed, patient to call for any signs or symptoms of infection. The usual discomforts associated with this procedure were detailed. Proper use of pain medicines was reviewed. Patient was given ample opportunity to have all her questions answered before signing informed consent. Medications Added to Medication List This Visit: 1) Ibuprofen 800 Mg Oral Tablet (Ibuprofen) .... 1 po tid (prn) 2) Oxycodone-acetaminophen 5-325 Mg Oral Tablet (Oxycodone-acetaminophen) .... 1-2po q6h Patient states she can take Percocet without having any reactions Medications and Allergies Allergies Allergy/AdvReac Type Severity Reaction Status Date / Time morphine Allergy Angioedema Verified 12/26/17 18:04 Home Medications Medication Instructions Recorded Confirmed Last Taken Type cloNIDine [Catapres] 0.2 mg PO BID 06/06/17 12/26/17 06/06/17 History Acetaminophen/Codeine [Tylenol 1 tab PO Q6H PRN #12 tab 12/12/17 12/26/17 Unknown Rx /Codeine # 3 tab] Active Meds: Active Medications Cefazolin Sodium (Ancef/Sterile Water 2 Gm/20 Ml) 2 gm in 20 mls @ 80 mls/hr IV PREOP NR; Protocol Stop: 12/31/17 23:59 Exam Vital Signs Temp Pulse Resp BP 98.3 F 78 16 150/86 12/27/17 10:20 12/27/17 10:20 12/27/17 10:20 12/27/17 10:20 Results - Labs 12/27/17 10:30 12/27/17 10:30 Assessment and Plan - Patient Problems (1) Pelvic pain Status: Chronic
[~2017-12-31 06:08] MED LIST: ANCEF/STERILE WATER 2 GM/20 ML 2 GM/20 ML SYRINGE IV NR
[2017-12-31] MEDS ORDERED: NACL BACTERIOSTATIC INFILTRATI ONE (06:53)
[2017-12-31] MEDS ORDERED: SUBLIMAZE IV NR (06:56)
[2017-12-31] MEDS ORDERED: XYLOCAINE 1% 20 mL INFILTRATI NR (07:00)
[2017-12-31] MEDS ORDERED: MARCAINE 0.5% INFILTRATI NR (07:00)
[2017-12-31] MEDS ORDERED: VERSED IV NR (07:00)
--- NOTE | 2017-12-31 07:00 | Anesthesia Day of Surgery ---
Anesthesia Day of Surgery - Day of Surgery Patient Examined: Yes Patient H&P Reviewed: Yes Patient is NPO: Yes Beta Blockers: No
[2017-12-31] MEDS ORDERED: MARCAINE 0.25% INFILTRATI ONE (07:17)
[2017-12-31] MEDS ORDERED: NACL 0.9% 1000 ML 1,000 ML ONE ×3 (07:18→12:26)
[2017-12-31] MEDS ORDERED: NEOSPORIN GU IR ONE ×2 (07:37→10:13)
[2017-12-31] MEDS ORDERED: DIPRIVAN 10 MG/ML IV ONE (07:49)
[2017-12-31] MEDS ORDERED: NORMODYNE IV PRN (07:49)
[2017-12-31] MEDS ORDERED: DILAUDID ONE ×2 (07:50→12:56)
[2017-12-31] MEDS ORDERED: ZEMURON IV ONE (07:50)
[2017-12-31] MEDS ORDERED: XYLOCAINE MPF 2% ONE (07:50)
[2017-12-31] MEDS ORDERED: TORADOL IV PRN (07:53)
[2017-12-31] MEDS ORDERED: NACL 0.9% IR ONE (10:13)
[2017-12-31] MEDS ORDERED: ZOFRAN ONE (10:46)
[2017-12-31] MEDS ORDERED: NEOSTIGMINE ONE (10:53)
[2017-12-31] MEDS ORDERED: ROBINUL ONE (10:53)
[2017-12-31] MEDS ORDERED: TORADOL ONE (10:53)
[2017-12-31] MEDS ORDERED: NEO SYNEPHRINE/NS Syringe(OR USE) IV ONE (11:07)
[2017-12-31] MEDS: DILAUDID IV PRN ×4 (12:17→13:12)
[2017-12-31] MEDS ORDERED: APRESOLINE ONE (12:36)
[2017-12-31] MEDS ORDERED: APRESOLINE IV NR (12:41)
[2017-12-31] MEDS ORDERED: REGLAN PO PRN (13:49)
[2017-12-31] MEDS ORDERED: ANCEF/NS 1 GM/50 ML 1 GM/50 ML BAG IV SCH (13:49)
[2017-12-31] MEDS ORDERED: REGLAN IV PRN (13:49)
[2017-12-31] MEDS ORDERED: PERCOCET 5/325 PO PRN (13:49)
[2017-12-31] MEDS ORDERED: ZOFRAN PO PRN (13:49)
[2017-12-31] MEDS ORDERED: TYLENOL PR PRN (13:49)
[2017-12-31] MEDS ORDERED: ZOFRAN IV PRN (13:49)
--- NOTE | 2017-12-31 14:00 | Post Anesthesia Evaluation ---
- Post Anesthesia Evaluation Patient Participated: Yes Airway Patent: Yes Stable Respiratory Function: Yes Nausea/Vomiting: No Temp > 96.8F: Yes Pain Manageable: Yes Adequeate Hydration: Yes Anesthesia Complications: No
[2017-12-31] MEDS: TORADOL IV SCH ×2 (15:00→21:27)
[2017-12-31] MEDS: ceFAZolin 1 GM in NACL 0.9% 20 ML IV SCH (17:50)
[2017-12-31] MEDS: NACL 0.9% 1000 ML 1,000 ML IV SCH (17:50)
[2017-12-31] MEDS: TYLENOL PO SCH (20:12)
--- NOTE | 2017-12-31 20:19 | Operative Report ---
Operative Report Operative Report: Date: 12/31/2017 Preoperative diagnosis: 1. Chronic pelvic pain suspect post-ablation syndrome and pelvic adhesions Postoperative diagnosis: 1. Chronic pelvic pain suspect post-ablation syndrome and pelvic adhesions 2. Severe pelvic adhesions Procedure: 1. Robotic-assisted total hysterectomy 2. Bilateral salpingectomy 3. Lysis of pelvic adhesions Surgeon: Ruma Hare MD Glue Sprayer: Marlin Jones M.D. Anesthesiologist: [] Anesthesia: General endotracheal anesthesia EBL: Approximately 50 mL Findings: Exam under anesthesia revealed the uterus to be adhered to the anterior abdominal wall but small. No adnexal masses were palpated. The uterus was sounded to approximately 8 cm. There were dense adhesions of the uterus to the left anterior abdominal wall. Grossly normal ovaries and remaining portions of tube. Procedure: Patient was taken to the OR and placed in the supine position. General anesthesia was induced and an oral gastric tube was placed. Her neck and head were placed on foam support. Foam eye protection with goggles were secured in place. Then foam face protection was placed and secured. Foam shoulder pads were then positioned on her shoulders for Trendelenburg positioning. She was then placed in dorsolithotomy position. Exam under anesthesia as above. The abdomen and vagina were then prepped and draped in the usual sterile fashion. Timeout was performed. A Govea catheter was inserted into the bladder with drainage of clear yellow urine. The operative speculum was introduced into the vagina and the anterior lip of the cervix was grasped with single-toothed tenaculum. The uterus was sounded to 8 cm. The cervix was progressively dilated to allow the large V care uterine manipulator. The bulb of the manipulator was inflated and the speculum and tenaculum were removed. The cup of the manipulator was placed around the cervix and the blue occluder of the manipulator was properly positioned in the vagina. A laparotomy sponge that was saturated with a solution of polymyxin and saline was placed in the vagina to ensure pneumoperitoneum. Sterile gloves were placed and attention was turned to the abdomen. A 10 mm vertical supraumbilical incision was made approximately 10 cm superior to the elevated fundus of the uterus. A 12mm trocar with the laparoscope and camera attached was introduced through this incision under direct visualization. The abdomen was insufflated. No obvious bowel, bladder, ureteral, or major vascular injury was noted. The patient was then placed in steep Trendelenburg position and the following trochars were placed under direct visualization: 8 mm robotic trochars were placed through incisions made in the bilateral midclavicular lower abdominal region approximately 10 cm lateral and approximately 2 cm below the midline incision, and a 5 mm trocar was placed through an incision made in the right lower lateral pelvis approximately 2 cm superior to the iliac crest. The 10 mm laparoscope was then replaced by a 5 mm laparoscope that was placed through the 5 millimeter lateral trocar. The 12 mm trocar was then removed in the Raman Rivera fascial closure device was placed through the incision and a 0 Vicryl was placed through the fascia. Once the suture was secured the 12 mm trocar was reintroduced. Once the trochars were in the appropriate positions, the [employer] robot system was engaged. The EndoShears and bipolar device was placed through the 8 mm trochars and positioned then attention was turned to the console. The uterus was elevated and bilateral salpingectomy was performed. Each tube was removed through the 5 mm trocar and sent to pathology in separate containers. Then the utero-ovarian ligaments were clamped, cauterized and incised bilaterally using 30 W of energy. Then the round ligaments were identified and were clamped, cauterized and incised bilaterally. At this point it appeared that the uterus is difficult to manipulate so sterile gloves were placed and attention was turned to the vagina again where the manipulator was removed and repositioned. Upon repositioning, it appeared that original placement of the manipulator was in a false tract due to her previous endometrial ablation. With repositioning the uterus was able to be better manipulated and the once laparotomy sponge was placed in the vagina. Then attention was turned back to the console. The anterior leaf of the broad ligament on the right was elevated and dissected away from the uterus and the cervix with blunt and sharp dissection. The thick adhesion on the left was carefully dissected away from the uterus and the lower uterine segment. No ureteral or bladder injury was noted. At this point anatomy was restored and the remainder of the anterior leaf of the broad ligament was elevated and careful blunt and sharp dissection the bladder flap was created and dissected away from the lower uterine segment and cervix. The posterior leaf of the broad ligament was dissected away from the uterine vessels. The cup of the uterine manipulator was palpated both anteriorly and posteriorly. Course of the ureters was visualized and was confirmed to be away from the operative field. The uterine vessels were then clamped and cauterized bilaterally. Blanching of the uterus was then noted. Attention was again turned to the anterior lower uterine segment and the bladder was confirmed to be away from the operative field. Then attention was turned again to the posterior where the cup of the manipulator was palpated and a colpotomy was performed down to the cup. The incision was extended in the lateral position the uterine vessels that were again clamped and cauterized and incised. Continuing along the cup of the manipulator in a circumferential manner the colpotomy was completed. The uterus and cervix were then removed through the vaginal incision. The pelvis was irrigated with warm normal saline. A moist laparotomy sponge was placed in the vagina to maintain pneumoperitoneum. The vagina cuff was reapproximated using V LOC 180 suture in a simple running stitch. Then a J stitch was performed to secure the suture. Again the pelvis was copiously irrigated with polymixin in warm normal saline. The laparotomy sponge was removed from the vagina. No bowel, bladder, ureteral or major vascular injury was noted. Once hemostasis was noted, Andrea was applied to the operative field to ensure hemostasis. Then Interceed was applied to the operative field to decrease formation of adhesions. Again hemostasis was noted. Then the instruments were removed, the robot was disengaged. At the beginning of the case there appeared to be some bleeding around the 12 mm trocar site, after scrubbing back in and sterile gloves were placed, the 5 mm laparoscope was introduced through the 5 mm trocar and the trocar site was noted to be hemostatic. The Govea bag was noted to have a scant amount of pinkish urine therefore with the 5 mm laparoscope placed through the 12 mm trocar and the pelvis was again inspected and peristalsis of both ureters was visualized and no injury to the bladder was noted. Urine in the tube of the catheter was clear yellow urine at the end of the procedure. The 12 mm trocar was removed and the fascia was ligated with the 0 Vicryl suture that was placed at the beginning of the procedure. .The patient was taken out of Trendelenburg position, the abdomen was desufflated, the remaining trochars were removed. Incisions were reapproximated using 4-0 Vicryl in a subcuticular manner. Surgiseal was placed over the incisions. The vagina was then inspected, no bleeding was noted. The urine was again inspected and noted to be draining clear yellow into the Govea bag. Patient was taken to recovery room in stable condition.
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
[2017-12-31] MEDS: PEPCID IV SCH (21:27)
[2018-01-01] MEDS: NACL 0.9% 1000 ML 1,000 ML IV SCH ×2 (00:27→10:06)
[2018-01-01] MEDS: TORADOL IV SCH ×2 (02:49→09:57)
[2018-01-01] MEDS: ceFAZolin 1 GM in NACL 0.9% 20 ML IV SCH (02:53)
[2018-01-01] MEDS ORDERED: DILAUDID IV ONE (03:53)
[2018-01-01] MEDS ORDERED: BENADRYL IV PRN (03:54)
[2018-01-01] MEDS: TYLENOL PO SCH (05:20)
[2018-01-01 05:24] LABS: Hematocrit 35.7 % (30.3-42.9); Hemoglobin 11.9 gm/dl (10.1-14.3)
--- NOTE | 2018-01-01 08:49 | Progress Note ---
Assessment and Plan - Patient Problems (1) Pelvic pain Current Visit: No Status: Chronic (2) History of robot-assisted laparoscopic hysterectomy Current Visit: Yes Status: Acute (3) Pelvic adhesions Current Visit: Yes Status: Acute (4) Left thigh pain Current Visit: Yes Status: Acute Plan to address problem: Doppler lower extremity, ? d/c charge today Subjective - Subjective Date of service: 01/01/18 Principal diagnosis: POD#1 RATH, DAPHNIE, (B) salpingectomy Interval history: patient resting in bed, complains of pain (L) lower medial thigh Patient reports: appetite normal, pain well controlled, ambulating normally Objective - Vital Signs Latest vital signs: Vital Signs Temp Pulse Resp BP BP Pulse Ox 01/01/18 05:00 98.0 F 76 20 146/98 01/01/18 00:00 98.5 F 79 20 129/94 12/31/17 20:05 99.3 F 78 18 126/88 12/31/17 16:25 98.5 F 83 18 123/83 98 12/31/17 13:40 12 12/31/17 13:35 97.8 F 92 H 16 148/99 100 12/31/17 13:15 97.7 F 96 H 14 136/92 96 12/31/17 13:12 13 12/31/17 13:00 85 15 130/87 97 12/31/17 12:55 14 12/31/17 12:45 79 15 142/95 98 12/31/17 12:42 77 160/100 12/31/17 12:30 73 14 160/100 96 12/31/17 12:27 14 12/31/17 12:17 12 12/31/17 12:15 72 12 160/107 100 12/31/17 12:00 72 16 142/121 100 12/31/17 11:45 70 13 141/97 100 12/31/17 11:40 71 13 136/90 100 12/31/17 11:35 97.1 F L 73 13 135/92 100 Intake and Output 12/31/17 01/01/18 01/01/18 22:59 06:59 14:59 Intake Total 947.083 Output Total 700 1700 Balance -700 -822.917 Intake: IV 827.083 NaCl 0.9% 1000 ml 1,000 827.083 ml @ 125 mls/hr IV [facility] Rx#:[id number] Oral 120 Output: Urine 700 1700 Indwelling Catheter 700 1700 Other: Total, Intake Amount 120 Total, Output Amount 700 800 Voiding Method Indwelling Catheter - Exam Breasts: Present: deferred Cardiovascular: Present: Regular rate Lungs: Present: Clear to auscultation, Normal air movement Abdomen: Present: normal appearance, soft, normal bowel sounds. Absent: distention Extremities: Present: normal. Absent: tenderness, edema Incision: Present: normal, dry, intact - Labs Labs: Abnormal lab results 01/01/18 Range/Units 04:25 Potassium 3.3 L (3.6-5.0) mmol/L
[2018-01-01] MEDS: PEPCID IV SCH (09:58)
[2018-01-01] MEDS ORDERED: LEVAQUIN PO SCH (10:00)
--- NOTE | 2018-01-01 13:42 | Discharge Summary ---
Providers - Providers Date of Admission: 12/31/17 12:00 Date of discharge: 01/01/18 Attending physician: LIANNA SAVAGE Primary care physician: MATTHEW SINGH Hospitalization Condition: Good Procedures: RATH. (B) salpingectomy, DAPHNIE Hospital course: uncomplicated Disposition: DC- TO HOME OR SELFCARE - Discharge Diagnoses (1) Pelvic pain Status: Chronic (2) History of robot-assisted laparoscopic hysterectomy Status: Acute (3) Pelvic adhesions Status: Acute (4) Left thigh pain Status: Acute Core Measure Documentation - Palliative Care Palliative Care/ Comfort Measures: Not Applicable - Core Measures Any of the following diagnoses?: none (Patient states she developed a hematoma under vein surgery) Exam - Constitutional Vitals: Temp Pulse Resp BP Pulse Ox 98.6 F 76 20 145/92 98 01/01/18 08:34 01/01/18 08:34 01/01/18 08:34 01/01/18 08:34 01/01/18 08:34 Plan Activity: other (No sex, no driving, ambulate ~1mile on your property a day. Use incentive spirometer every hour while awake) Weight Bearing Status: Weight Bear as Tolerated Diet: low salt (Eat small meals frequently, drink ~70oz water a day. Keep bladder empty by urinating every hour.) Wound: open to air, keep clean and dry Special Instructions: no heavy lifting (>25#, ) Additional Instructions: You may restart you clonidine, call you primary care provider immediately for blood pressure management Follow up with: LIANNA SAVAGE MD [Staff Physician] - (As scheduled) Forms: Work/School Release Form, Work/School Release Form(ED), Work/School Excuse Out Patient
[2018-01-01 14:20] VITALS: BP 167/106
--- NOTE | 2018-01-03 17:03 | Vascular Lab Report ---
Left Lower Extremity Venous Duplex Study: Reason for Exam: Pain and swelling of the left lower extremity. Comments on the Right: A limited duplex study was done of the proximal veins of the right lower extremity. All veins visualized are freely compressible without evidence of internal echogenicity. Flow is spontaneous and phasic throughout. No evidence of acute or chronic thrombus is seen in any of the vessels visualized. Comments on the Left: All veins visualized are freely compressible without evidence of internal echogenicity. Flow is spontaneous and phasic throughout. No evidence of acute or chronic thrombus is seen in any of the vessels visualized. A soft tissue change in the left knee area is consistent with a Gipson's cyst. Impression: No evidence of acute or chronic deep venous thrombosis in the left lower extremity. A soft tissue change in the left knee area is consistent with a Gipson's cyst.
== END 2018-01-01 15:00 | disposition home or self-care (01) ==
LOC: OR 06:08 → OB 12:00 → INTOOBSV 12:00
PROVIDERS: ADMIT Obstetrics & Gynecology; ATTEND Obstetrics & Gynecology
DX: R10.2 Pelvic and perineal pain (principal); G89.29 Other chronic pain; N73.6 Female pelvic peritoneal adhesions (postinfective); I10 Essential (primary) hypertension; M79.652 Pain in left thigh; F43.10 Post-traumatic stress disorder, unspecified
CPT/HCPCS: 36415; 58552; 64450; 80053; 81025; 84132; 85014; 85018; 85027; 86850; 86900; 86901; 88307; 93005; 93010; 93971; 96374; 96375; 96376; A4217; C1765; G0378; J0360; J0690; J1170; J1885; J2250; J2370; J2405; J2704; J2710; J2765; J3010; J7030; S2900; 88302

== ENCOUNTER 2018-01-30 18:51 | Emergency (ER) | payer OTHER ==
[2018-01-30 19:33] VITALS: BP 152/109
[2018-01-30 20:13] LABS: Basophils % (Auto) 0.5 % (0.0-1.8); Eosinophils # (Auto) 0.1 K/mm3 (0.0-0.4); Eosinophils % (Auto) 1.9 % (0.0-4.3); Hematocrit 39.1 % (30.3-42.9); Hemoglobin 13.2 gm/dl (10.1-14.3); Lymphocytes # (Auto) 2.1 K/mm3 (1.2-5.4); Lymphocytes % (Auto) 30.4 % (13.4-35.0); Mean Corpuscular HGB Conc 34 % (30-34); Mean Corpuscular Hemoglobin 26 pg (28-32); Mean Corpuscular Volume 78 fl (79-97); Monocytes # (Auto) 0.5 K/mm3 (0.0-0.8); Monocytes % (Auto) 7.1 % (0.0-7.3); Platelet Count 270 K/mm3 (140-440); Red Blood Count 4.99 M/mm3 (3.65-5.03); Red Cell Distribution Width 14.4 % (13.2-15.2)
[2018-01-30 22:56] LABS: Bilirubin,Urine NEG (Negative); Blood,Urine SM (Negative); Calcium Oxalate Crystals,Urine 2+; Color,Urine Yellow (Yellow); Mucus,Urine 1+ /HPF; Protein,Urine <15 mg/dL mg/dL (Negative)
--- NOTE | 2018-01-31 05:09 | Emergency Department Report ---
ED Female HPI - General Chief complaint: Vaginal Bleeding Stated complaint: ABD PAIN/BLEEDING POST HYSTOREC Time Seen by Provider: 01/31/18 02:15 Source: patient Mode of arrival: Ambulatory Limitations: No Limitations - History of Present Illness Initial comments: Patient is 1 month postop laparoscopic hysterectomy she's chronic pain she's been having pain ever since the procedure she's also had some vaginal spotting. She did apparently call her [employer] office weeks ago complaining symptoms. ER at that time and then apparently decided to come now weeks later. OB service consultant simulation educator the nurse community midwife says that the patient had recently requested a letter to her current work she is here stated to me that she needs something stronger for pain and Motrin. She denies lightheadedness dizziness fainting she denies soaking pads states that the wounds are healing fine -: days(s) Radiation: non-radiating Quality: cramping Consistency: intermittent Associated Symptoms: vaginal bleeding - Related Data Home Medications Medication Instructions Recorded Confirmed Last Taken cloNIDine [Catapres] 0.2 mg PO BID 06/06/17 12/31/17 12/31/17 Previous Rx's Medication Instructions Recorded Last Taken Type Acetaminophen/Codeine [Tylenol 1 tab PO Q6H PRN #12 tab 12/12/17 Unknown Rx /Codeine # 3 tab] traMADol [Ultram] 50 mg PO Q6HR PRN #15 tablet 01/31/18 Unknown Rx Allergies Allergy/AdvReac Type Severity Reaction Status Date / Time morphine Allergy Angioedema Verified 12/26/17 18:04 ED Review of Systems ROS: Stated complaint: ABD PAIN/BLEEDING POST HYSTOREC Other details as noted in HPI Comment: All other systems reviewed and negative Constitutional: denies: diaphoresis, fever, malaise ENT: denies: dental pain, hearing loss, epistaxis Respiratory: denies: shortness of breath, SOB with exertion, SOB at rest, stridor Cardiovascular: denies: chest pain, palpitations, dyspnea on exertion, orthopnea , edema, syncope Gastrointestinal: abdominal pain. denies: nausea, vomiting, diarrhea, constipation, hematemesis, melena, hematochezia Skin: denies: rash, lesions Neurological: denies: numbness, paresthesias, confusion Hematological/Lymphatic: denies: easy bruising ED Past Medical Hx - Past Medical History Hx Hypertension: Yes (since 2005) Hx Congestive Heart Failure: No Hx Diabetes: No Hx Deep Vein Thrombosis: Yes (2017) Hx Headaches / Migraines: Yes (migraines) Hx Asthma: No Hx Tuberculosis: Yes Additional medical history: heart murmur,various veins - Surgical History Hx Appendectomy: Yes Additional Surgical History: tubaligation,left carpel tunnel surgery, HYSTERECTOMY - Social History Smoking Status: Never Smoker Substance Use Type: None - Medications Home Medications: Home Medications Medication Instructions Recorded Confirmed Last Taken Type cloNIDine [Catapres] 0.2 mg PO BID 06/06/17 12/31/17 12/31/17 History Acetaminophen/Codeine [Tylenol 1 tab PO Q6H PRN #12 tab 12/12/17 12/26/17 Unknown Rx /Codeine # 3 tab] traMADol [Ultram] 50 mg PO Q6HR PRN #15 tablet 01/31/18 Unknown Rx ED Physical Exam - General Limitations: No Limitations General appearance: alert, in no apparent distress, anxious - Head Head exam: Present: atraumatic, normocephalic - Eye Eye exam: Present: PERRL, EOMI - ENT ENT exam: Present: normal exam, normal orophraynx - Neck Neck exam: Present: normal inspection. Absent: tenderness, meningismus - Respiratory Respiratory exam: Present: normal lung sounds bilaterally. Absent: respiratory distress, wheezes, rales, rhonchi, stridor, accessory muscle use, prolonged expiratory - Cardiovascular Cardiovascular Exam: Present: regular rate, normal rhythm - GI/Abdominal GI/Abdominal exam: Present: soft, other (well-healing laparoscopic site). Absent: distended, tenderness, guarding, rebound, rigid, mass, pulsatile mass - Extremities Exam Extremities exam: Present: normal inspection, normal capillary refill. Absent: pedal edema, joint swelling, calf tenderness - Back Exam Back exam: Present: normal inspection. Absent: CVA tenderness (R), CVA tenderness (L), muscle spasm, paraspinal tenderness, vertebral tenderness - Neurological Exam Neurological exam: Present: alert, oriented X3, CN II-XII intact. Absent: motor sensory deficit - Skin Skin exam: Present: warm, dry. Absent: cyanosis, diaphoretic, erythema, urticaria, vesicles, petechiae, pallor ED Course Vital Signs 01/30/18 19:29 Temperature 98.5 F Pulse Rate 76 Respiratory 17 Rate Blood Pressure 152/109 O2 Sat by Pulse 100 Oximetry ED Medical Decision Making - Lab Data Result diagrams: 01/30/18 19:43 - Medical Decision Making Case was discussed with Mirna Anderson was simulation educator for Dr. Sharma. The patient was supposed to follow up with them postop and apparently missed an appointment. She did call her office about 2 weeks ago. For persistent pain but never followed up. Sh not having an acute abdomen at this time there is no rebound or guarding. The sites look fine. H&H is normal as is the WBC and platelets. Urinalysis is negative. The the community midwife stated that if she is stable. She felt that she should call the office in push up her appointment. Her vital signs were stable she was not orthostatic she did not appear anemic or syncopal she denies active heavy soaking of pads she just spotting. She did ask me for something for pain and this doesn't appear to be mostly just some postoperative pain and she'll be stable for outpatient follow-up E is Critical care attestation.: If time is entered above; I have spent that time in minutes in the direct care of this critically ill patient, excluding procedure time. ED Disposition Clinical Impression: Post-op pain, Pelvic pain Disposition: DC-01 TO HOME OR SELFCARE Is pt being admited?: No Condition: Stable Instructions: Robot Assisted Laparoscopic Hysterectomy (GEN) Additional Instructions: See Dr. Sharma as soon as possible and return if new or alarming or worsening or persistent symptoms or call 911 Prescriptions: traMADol [Ultram] 50 mg PO Q6HR PRN #15 tablet PRN Reason: Pain Referrals: SIRISHA COHEN MD [Primary Care Provider] - 3-5 Days Time of Disposition: 05:10
== END 2018-01-31 05:20 | disposition home or self-care (01) ==
LOC: ED 18:51
DX: R10.2 Pelvic and perineal pain (principal); G89.18 Other acute postprocedural pain
CPT/HCPCS: 36415; 81001; 84703; 85025; 86850; 86900; 86901

== ENCOUNTER 2018-05-01 17:24 | Observation (INO) | payer OTHER ==
[2018-05-01] MEDS ORDERED: SODIUM CHLORIDE FLUSH SYRINGE 10 ML IV PRN (17:36)
[2018-05-01] MEDS ORDERED: ZOFRAN IV PRN (17:36)
[2018-05-01 19:45] LABS: Basophils % (Auto) 0.6 % (0.0-1.8); Eosinophils # (Auto) 0.3 K/mm3 (0.0-0.4); Eosinophils % (Auto) 4.3 % (0.0-4.3); Hematocrit 34.4 % (30.3-42.9); Hemoglobin 11.7 gm/dl (10.1-14.3); Lymphocytes # (Auto) 2.4 K/mm3 (1.2-5.4); Lymphocytes % (Auto) 31.9 % (13.4-35.0); Mean Corpuscular HGB Conc 34 % (30-34); Mean Corpuscular Hemoglobin 26 pg (28-32); Mean Corpuscular Volume 77 fl (79-97); Monocytes # (Auto) 0.6 K/mm3 (0.0-0.8); Monocytes % (Auto) 7.9 % (0.0-7.3); Platelet Count 248 K/mm3 (140-440); Red Blood Count 4.44 M/mm3 (3.65-5.03); Red Cell Distribution Width 15.3 % (13.2-15.2)
[2018-05-01] MEDS: TORADOL IV PRN (19:47)
[2018-05-01] MEDS: NACL 0.9% 1000 ML 1,000 ML IV SCH (19:47)
[2018-05-01 19:50] LABS: Alanine Aminotransferase 15 units/L (7-56); Albumin 3.8 g/dL (3.9-5); BUN/Creatinine Ratio 10; Blood Urea Nitrogen 6 mg/dL (7-17); Calcium 9.1 mg/dL (8.4-10.2); Hemolysis Index 8
--- NOTE | 2018-05-01 21:03 | Cat Scan Report ---
FINAL REPORT PROCEDURE: CT ABDOMEN PELVIS WO CON TECHNIQUE: Computerized axial tomography of the abdomen and pelvis was performed without intravenous contrast. This study is performed without intravascular contrast material and its sensitivity for abdominal and pelvic pathology, including neoplasms, inflammation, abscess, free fluid, thrombosis, arterial dissection and infarction, is reduced compared with a contrast enhanced study. HISTORY: H/o Free air in abdomen COMPARISON: No prior studies are available for comparison. FINDINGS: Visualized lower thorax: No significant abnormality. Liver: Normal size and attenuation. Spleen: Normal size and attenuation. Gallbladder and biliary system: Normal. Pancreas: Normal. Adrenals: Normal. Kidneys: There are no kidney stones or ureteral stones. There is no hydronephrosis.. GI tract: There is moderate stool in the colon without evidence of obstruction. There is no colitis or diverticulitis. The stomach and small bowel are unremarkable. The appendix is not discretely identified.. Lymph nodes and mesentery: Normal. Vasculature: Normal. Bladder: Normal. Reproductive organs: There has been a hysterectomy.. Peritoneum: There is nonspecific free pelvic fluid. There is no free air, abscess or adenopathy.. Musculoskeletal structures: No significant abnormality. Other: None. IMPRESSION: There are no kidney stones or ureteral stones. There is no hydronephrosis.. There is moderate stool in the colon without evidence of obstruction. There is no colitis or diverticulitis. The stomach and small bowel are unremarkable. The appendix is not discretely identified.. There has been a hysterectomy.. There is nonspecific free pelvic fluid. There is no free air, abscess or adenopathy. .
[2018-05-01] MEDS: ULTRAM PO PRN (22:22)
--- NOTE | 2018-05-01 22:59 | History and Physical Report ---
History of Present Illness Date of examination: 05/01/18 Date of admission: 05/01/18 18:45 History of present illness: Is a 38-year-old black female para 2103 who is status post robotic hysterectomy December 2017. Patient presented to the office day of admission stating that she was seen 2 days ago at [facility] emergency room and was told that CT exam revealed free air in her abdomen. Patient states that Dr. Hare was not called and was told that she was okay to go home. Patient complaining of lower abdominal pain denies any fever or chills or nausea or vomiting. Patient's abdomen is soft. Review of patient's chart shows a history of possible bowel obstruction in the past. He should be admitted to rule out free air for evaluation of her abdominal pain. Past History Past Medical History: GERD (H pylori), hypertension, other (heart murmur) Past Surgical History: (times 3), hysterectomy (robotic-assisted), Other (endometrial ablation carpel tunnel) Social history: () Family history: diabetes, hypertension Medications and Allergies Allergies Allergy/AdvReac Type Severity Reaction Status Date / Time morphine Allergy Angioedema Verified 12/26/17 18:04 Home Medications Medication Instructions Recorded Confirmed Last Taken Type cloNIDine [Catapres] 0.2 mg PO BID 06/06/17 05/01/18 05/01/18 History Acetaminophen/Codeine [Tylenol 1 tab PO Q6H PRN #12 tab 12/12/17 05/01/18 Rx /Codeine # 3 tab] traMADol [Ultram] 50 mg PO Q6HR PRN #15 tablet 01/31/18 05/01/18 Unknown Rx Active Meds: Active Medications Clonidine HCl (Catapres) 0.2 mg PO Q12HR NILSON Sodium Chloride (Nacl 0.9% 1000 Ml) 1,000 mls @ 125 mls/hr IV DIRECT NILSON Last Admin: 05/01/18 19:47 Dose: 125 mls/hr Ketorolac Tromethamine (Toradol) 30 mg IV Q6H PRN PRN Reason: Pain , Severe (7-10) Stop: 05/06/18 17:43 Last Admin: 05/01/18 19:47 Dose: 30 mg Ondansetron HCl (Zofran) 4 mg IV Q8H PRN PRN Reason: Nausea And Vomiting Sodium Chloride (Sodium Chloride Flush Syringe 10 Ml) 10 ml IV BID NILSON Sodium Chloride (Sodium Chloride Flush Syringe 10 Ml) 10 ml IV PRN PRN PRN Reason: LINE FLUSH Tramadol HCl (Ultram) 50 mg PO Q4H PRN PRN Reason: Pain, Moderate (4-6) Last Admin: 05/01/18 22:22 Dose: 50 mg Review of Systems Constitutional: fatigue, poor appetite, no fever, no chills Ears, nose, mouth and throat: deferred Breasts: deferred Cardiovascular: no chest pain Respiratory: no cough Gastrointestinal: abdominal pain, constipation, no nausea, no vomiting, no diarrhea Exam - Constitutional Vitals: Temp Pulse Resp BP Pulse Ox 98.3 F 52 L 18 140/76 100 05/01/18 20:45 05/01/18 20:45 05/01/18 22:22 05/01/18 20:45 05/01/18 20:45 General appearance: Present: mild distress - Respiratory Respiratory effort: normal - Extremities Extremities: no ischemia, pulses intact - Abdominal General gastrointestinal: Present: soft, tender, distended (slightly), hypoactive bowel sounds, other (multiple surgical scars) Localized gastrointestinal: tender: diffuse, guarding: diffuse Female genitourinary: Present: normal, other (vaginal cuff intact) - Rectal Rectal Exam: deferred - Integumentary Integumentary: Present: clear, warm, dry - Musculoskeletal Musculoskeletal: strength equal bilaterally - Psychiatric Psychiatric: appropriate mood/affect, intact judgment & insight Results - Labs CBC & Chem 7: 05/01/18 19:14 05/01/18 19:14 Labs: Abnormal lab results 05/01/18 05/01/18 Range/Units 19:14 19:14 MCV 77 L (79-97) fl MCH 26 L (28-32) pg RDW 15.3 H (13.2-15.2) % [place] % (Auto) 7.9 H (0.0-7.3) % Potassium 3.3 L (3.6-5.0) mmol/L Chloride 96.5 L (98-107) mmol/L BUN 6 L (7-17) mg/dL Creatinine 0.6 L (0.7-1.2) mg/dL Albumin 3.8 L (3.9-5) g/dL Assessment and Plan - Patient Problems (1) Pelvic pain Current Visit: No Status: Chronic Plan to address problem: CT scan did not reveal any free air. Patient states she feels better than she did in office We'll continue to observe consider surgery consult in the morning if her abdominal pain continues (2) Abdominal pain Current Visit: Yes Status: Acute Qualifiers: Abdominal location: generalized Qualified Code(s): R10.84 - Generalized abdominal pain (3) HTN (hypertension) Current Visit: No Status: Chronic Qualifiers: Hypertension type: essential hypertension Qualified Code(s): I10 - Essential (primary) hypertension
[2018-05-01] MEDS: CATAPRES PO SCH (23:44)
[2018-05-02] MEDS: ULTRAM PO PRN ×2 (02:48→10:38)
[2018-05-02] MEDS: SODIUM CHLORIDE FLUSH SYRINGE 10 ML IV SCH ×3 (02:49→21:18)
[2018-05-02] MEDS: NACL 0.9% 1000 ML 1,000 ML IV SCH ×3 (05:11→21:17)
[2018-05-02] MEDS: TORADOL IV PRN ×3 (05:12→22:00)
[2018-05-02] MEDS ORDERED: ALUM-MAG HYDROX-SIMETH 200-200-20MG/5ML PO PRN (05:15)
--- NOTE | 2018-05-02 05:19 | Event Note ---
Date: 05/02/18 (Called by RN Pt c/o chest pain) Pt resting BP 168/95, 54,18 O2 sat 95. Lungs clear. Pt c/o stomach and chest pain. EKG ordered. Consult with Dr.K Romeo pt's acid bleacher placed. Consulted with order for Mylanta placed, he agrees with orders. Continue observation.
--- NOTE | 2018-05-02 07:32 | XRay Report ---
FINAL REPORT PROCEDURE: XR CHEST 1V AP TECHNIQUE: Chest radiograph anteroposterior view. CPT 38479 HISTORY: chest pain COMPARISON: No prior studies are available for comparison. FINDINGS: Heart: Normal. Mediastinum/Vessels: Normal. Lungs/Pleural space: There are no infiltrates, effusions or pneumothoraces.. Bony thorax: No acute osseous abnormality. Life support devices: None. IMPRESSION: Normal heart and lungs..
--- NOTE | 2018-05-02 08:01 | Progress Note ---
Assessment and Plan - Patient Problems (1) Pelvic pain Current Visit: Yes Status: Chronic (2) Abdominal pain Current Visit: Yes Status: Acute Qualifiers: Abdominal location: generalized Qualified Code(s): R10.84 - Generalized abdominal pain Plan to address problem: Pain didn't improve and now patient says return. CT normal limits. Patient without rebound on exam. Patient also history of chronic constipation. We'll obtain a GI consult (3) HTN (hypertension) Current Visit: Yes Status: Chronic Qualifiers: Hypertension type: essential hypertension Qualified Code(s): I10 - Essential (primary) hypertension (4) Chest pain Current Visit: Yes Status: Acute Qualifiers: Chest pain type: other chest pain Qualified Code(s): R07.89 - Other chest pain; R07.8 - Other chest pain Plan to address problem: Patient EKG verbal report shows bradycardia did obtain a consult from her metal inspector order from the chart will plan to see the patient will follow. Subjective Date of service: 05/02/18 Interval history: Review of call approximately 5 AM this morning patient complaining of chest pain. EKG ordered and cardiology consult ordered. Patient presently now still complaining of chest pain denies any nausea vomiting or radiation of pain. She also complains of abdominal pain. Objective - Constitutional Vitals: Vital Signs - 12hr 05/01/18 05/01/18 05/01/18 20:45 22:22 23:22 Temperature 98.3 F Pulse Rate 52 L Respiratory 18 18 18 Rate Blood Pressure Blood Pressure 140/76 [Right] O2 Sat by Pulse 100 Oximetry 05/01/18 05/02/18 05/02/18 23:44 02:00 02:48 Temperature 98.5 F Pulse Rate 56 L 50 L Respiratory 18 18 Rate Blood Pressure 154/93 Blood Pressure 147/90 [Right] O2 Sat by Pulse 97 Oximetry 05/02/18 05/02/18 05/02/18 03:49 05:02 05:12 Temperature 98.7 F 98.8 F Pulse Rate 50 L 52 L Respiratory 20 18 18 Rate Blood Pressure Blood Pressure 159/90 168/95 [Right] O2 Sat by Pulse 100 99 Oximetry General appearance: Present: mild distress - Respiratory Respiratory effort: normal - Breasts Breasts: deferred Extremities: no ischemia - Gastrointestinal General gastrointestinal: Present: tender Localized gastrointestinal: tender: diffuse, guarding: diffuse Rectal Exam: deferred - Integumentary Integumentary: clear, warm, dry - Musculoskeletal Musculoskeletal: strength equal bilaterally - Psychiatric Psychiatric: cooperative - Labs CBC & Chem 7: 05/01/18 19:14 05/01/18 19:14 Labs: Abnormal lab results 05/01/18 05/01/18 Range/Units 19:14 19:14 MCV 77 L (79-97) fl MCH 26 L (28-32) pg RDW 15.3 H (13.2-15.2) % [place] % (Auto) 7.9 H (0.0-7.3) % Potassium 3.3 L (3.6-5.0) mmol/L Chloride 96.5 L (98-107) mmol/L BUN 6 L (7-17) mg/dL Creatinine 0.6 L (0.7-1.2) mg/dL Albumin 3.8 L (3.9-5) g/dL
--- NOTE | 2018-05-02 09:01 | Consultation ---
History of Present Illness Consult date: 05/02/18 Requesting physician: MELLISA HIGGINS Consult reason: known to you History of present illness: The pt is a 38YO female with a past medical history significant for HTN, recurrent chest pain and palpitations, sinus bradycardia and is status post robotic hysterectomy in December 2017. She is followed in our office by Dr. Romeo. She presented with complaints of abdominal pain and dysuria since Saturday. She states that she was seen 2 days ago at [facility] ED and was told that her abdomen CT revealed air in her abdomen and she was discharged home. Her pain worsened and she presented to [facility] office yesterday with the same complaints and was subsequently admitted for further eval/management. CT scan on this admission reveal no specific findings and no free air. Early this morning, she developed chest pain and thus cardiology has been consulted. She describes her chest pain as a nonexertional, nonradiating, intermittent midsternal pressure which is reproducible with palpitation of the sternum. She denies any SOB, palpitations, n/v, diaphoresis, or syncope. She also reports intermittent dizziness with positional changes for the past several months. She takes clonidine, 0.3mg BID, for HTN. She was seen in our office by Dr. Romeo on 04/03/2018 and reported chest pain with palpitations, dyspnea and fatigue at that time. Her ECG at that time demonstrated sinus bradycardia, HR 44bpm, with t -wave inversions in precordial and inferior leads and she was scheduled for OP echo and lexiscan MPI stress test. Pt completed echo but has not yet completed stress test. Echo done 04/22/2018 showed EF 60-65%, mild TR. Past History Past Medical History: GERD (H pylori), hypertension Past Surgical History: (times 3), hysterectomy (robotic-assisted), Other (endometrial ablation carpel tunnel) Social history: (). denies: smoking, alcohol abuse, prescription drug abuse Family history: diabetes, hypertension Medications and Allergies Allergies Allergy/AdvReac Type Severity Reaction Status Date / Time morphine Allergy Angioedema Verified 12/26/17 18:04 Home Medications Medication Instructions Recorded Confirmed Last Taken Type cloNIDine [Catapres] 0.2 mg PO BID 06/06/17 05/01/18 05/01/18 History Acetaminophen/Codeine [Tylenol 1 tab PO Q6H PRN #12 tab 12/12/17 05/01/18 Rx /Codeine # 3 tab] traMADol [Ultram] 50 mg PO Q6HR PRN #15 tablet 01/31/18 05/01/18 Unknown Rx Active Meds: Active Medications Al Hydrox/Mg Hydrox/Simethicone (Alum-Mag Hydrox-Simeth [id number]/5ml) 30 ml PO Q4H PRN PRN Reason: Indigestion Last Admin: 05/02/18 05:52 Dose: 30 ml Clonidine HCl (Catapres) 0.2 mg PO Q12HR NIL[facility] Last Admin: 05/01/18 23:44 Dose: 0.2 mg Sodium Chloride (Nacl 0.9% 1000 Ml) 1,000 mls @ 125 mls/hr IV DIRECT NILSON Last Admin: 05/02/18 05:11 Dose: 125 mls/hr Ketorolac Tromethamine (Toradol) 30 mg IV Q6H PRN PRN Reason: Pain , Severe (7-10) Stop: 05/06/18 17:43 Last Admin: 05/02/18 05:12 Dose: 30 mg Ondansetron HCl (Zofran) 4 mg IV Q8H PRN PRN Reason: Nausea And Vomiting Sodium Chloride (Sodium Chloride Flush Syringe 10 Ml) 10 ml IV BID [facility] Last Admin: 05/02/18 02:49 Dose: 10 ml Sodium Chloride (Sodium Chloride Flush Syringe 10 Ml) 10 ml IV PRN PRN PRN Reason: LINE FLUSH Tramadol HCl (Ultram) 50 mg PO Q4H PRN PRN Reason: Pain, Moderate (4-6) Last Admin: 05/02/18 02:48 Dose: 50 mg Review of Systems Constitutional: no weight loss, no weight gain, no fever, no chills, no sweats Ears, nose, mouth and throat: no ear pain, no nose pain, no sinus pressure, no sinus pain Cardiovascular: chest pain, lightheadedness, high blood pressure, no orthopnea, no palpitations, no rapid/irregular heart beat, no edema, no syncope, no shortness of breath, no dyspnea on exertion, no paroxysmal nocturnal dyspnea, no leg edema, no decreased exercise tolerance Respiratory: no cough, no shortness of breath, no dyspnea on exertion, no congestion, no wheezing, no pain on inspiration Gastrointestinal: abdominal pain, no nausea, no vomiting, no diarrhea, no constipation, no change in bowel habits Genitourinary Female: dysuria Musculoskeletal: no neck stiffness, no neck pain, no shooting arm pain, no arm numbness/tingling, no low back pain, no shooting leg pain, no leg numbness/ tingling, no redness of joints Integumentary: no rash, no pruritis, no redness, no sores, no wounds Neurological: no head injury, no paralysis, no weakness, no parathesias, no numbness, no tingling, no seizures, no syncope Psychiatric: no anxiety Endocrine: no cold intolerance, no heat intolerance Hematologic/Lymphatic: no easy bruising, no easy bleeding, no lymphadenopathy Allergic/Immunologic: no urticaria, no wheezing, no persistent infections Physical Examination Vital Signs Temp Pulse Resp BP Pulse Ox 98.5 F 56 L 20 151/98 100 05/01/18 19:04 05/01/18 19:04 05/01/18 19:04 05/01/18 19:04 05/01/18 19:04 General appearance: no acute distress HEENT: Positive: PERRL, Normocephaly, Mucus Membranes Moist Neck: Positive: neck supple, trachea midline Cardiac: Positive: Regular Rhythm, S1/S2, Bradycardia Lungs: Positive: Decreased Breath Sounds Neuro: Positive: Grossly Intact Abdomen: Positive: Soft Skin: Positive: Clear. Negative: Rash, Wound Musculoskeletal: No Fluid Collection, No Pain, Normal Range of Motion Results 05/01/18 19:14 05/01/18 19:14 Cardiac Enzymes 05/01/18 Range/Units 19:14 AST 20 (5-40) units/L CBC 05/01/18 Range/Units 19:14 WBC 7.5 (4.5-11.0) K/mm3 RBC 4.44 (3.65-5.03) M/mm3 Hgb 11.7 (10.1-14.3) gm/dl Hct 34.4 (30.3-42.9) % Plt Count 248 (140-440) K/mm3 Lymph # 2.4 (1.2-5.4) K/mm3 Maries # 0.6 (0.0-0.8) K/mm3 Eos # 0.3 (0.0-0.4) K/mm3 Baso # 0.0 (0.0-0.1) K/mm3 Comprehensive Metabolic Panel 05/01/18 Range/Units 19:14 Sodium 137 (137-145) mmol/L Potassium 3.3 L (3.6-5.0) mmol/L Chloride 96.5 L (98-107) mmol/L Carbon Dioxide 30 (22-30) mmol/L BUN 6 L (7-17) mg/dL Creatinine 0.6 L (0.7-1.2) mg/dL Glucose 84 (65-100) mg/dL Calcium 9.1 (8.4-10.2) mg/dL AST 20 (5-40) units/L ALT 15 (7-56) units/L Alkaline Phosphatase 58 (35-129) units/L Total Protein 6.5 (6.3-8.2) g/dL Albumin 3.8 L (3.9-5) g/dL - Imaging and Cardiology Echo: pending, report reviewed (04/22/2018 showed EF 60-65%, mild TR. ) EKG: report reviewed, image reviewed EKG interpretations - Telemetry EKG Rhythm: Sinus Bradycardia - EKG Sinus rhythms and dysrhythmias: sinus bradycardia Repolarization changes or abnormalities: ST or T wave suggestive of ischemia Assessment and Plan Berta negative for AMI x 1. Chest pain is reproducible with palpation. However, given recurrent nature of chest pain and abnormal ECG, will plan for lexiscan MPI stress test when okay per [facility] and/or general surgery. Recommend transfer to telemetry per primary. Cont to trend Berta. Obtain orthostatics. Optimize anti-hypertensive regimen - cont reduced dose of clonidine (0.2mg BID) and initiate hydralazine in attempt to wean off clonidine given persistent sinus bradycardia and reported dizziness. Assessment and plan reviewed with pt at bedside. The patient has been seen in conjunction with Dr. Valadez who agrees with the assessment and plan of care. - Patient Problems (1) Atypical chest pain Current Visit: Yes Status: Acute (2) Abnormal EKG Current Visit: Yes Status: Acute (3) Abdominal pain Current Visit: Yes Status: Acute Qualifiers: Abdominal location: generalized Qualified Code(s): R10.84 - Generalized abdominal pain (4) History of robot-assisted laparoscopic hysterectomy Current Visit: No Status: Acute (5) HTN (hypertension) Current Visit: Yes Status: Chronic Qualifiers: Hypertension type: essential hypertension Qualified Code(s): I10 - Essential (primary) hypertension (6) Sinus bradycardia Current Visit: Yes Status: Chronic
--- NOTE | 2018-05-02 09:48 | Gastroenterology Consultation ---
History of Present Illness - Reason for Consult Consult date: 05/02/18 lower abdominal pain Requesting physician: KIRAN LEIVA - History of Present Illness The patient is a 38-year-old female for whom consultation was requested for severe lower abdominal pain. She was at her baseline state of health until approximately 3 days ago when she developed severe lower abdominal pain. The patient went to [facility] by her history and had a CT scan in the emergency room which she reports revealed "free air." He was discharged however from the emergency room but because of increasing pain contacted her fretted string instrument repairer and was admitted here also in part because of chest pain. She describes her pain as being constant and dull with periods of sharp increased pain spells. She has chronic constipation and has not had a bowel movement in 3 or 4 days. Last bowel movement was normal without any blood and having no diarrhea. She denies any fever or chills or weight loss. The patient had robotic hysterectomy in December of this year and reports having an upper endoscopy by one of my associates a few months ago. It were no specific findings in the upper digestive tract by history. CT scan on this admission reveal no specific findings, and in particular no free air. There was no evidence of appendicitis or diverticulitis. Past History Past Medical History: GERD (H pylori), hypertension, other (heart murmur) Past Surgical History: (times 3), hysterectomy (robotic-assisted), Other (endometrial ablation carpel tunnel) Social history: () Family history: diabetes, hypertension Medications and Allergies Allergies Allergy/AdvReac Type Severity Reaction Status Date / Time morphine Allergy Angioedema Verified 12/26/17 18:04 Home Medications Medication Instructions Recorded Confirmed Last Taken Type cloNIDine [Catapres] 0.2 mg PO BID 06/06/17 05/01/18 05/01/18 History Acetaminophen/Codeine [Tylenol 1 tab PO Q6H PRN #12 tab 12/12/17 05/01/18 Rx /Codeine # 3 tab] traMADol [Ultram] 50 mg PO Q6HR PRN #15 tablet 01/31/18 05/01/18 Unknown Rx Active Meds: Active Medications Al Hydrox/Mg Hydrox/Simethicone (Alum-Mag Hydrox-Simeth [id number]/5ml) 30 ml PO Q4H PRN PRN Reason: Indigestion Last Admin: 05/02/18 05:52 Dose: 30 ml Clonidine HCl (Catapres) 0.2 mg PO Q12HR [facility] Last Admin: 05/01/18 23:44 Dose: 0.2 mg Sodium Chloride (Nacl 0.9% 1000 Ml) 1,000 mls @ 125 mls/hr IV DIRECT NILSON Last Admin: 05/02/18 05:11 Dose: 125 mls/hr Ketorolac Tromethamine (Toradol) 30 mg IV Q6H PRN PRN Reason: Pain , Severe (7-10) Stop: 05/06/18 17:43 Last Admin: 05/02/18 05:12 Dose: 30 mg Ondansetron HCl (Zofran) 4 mg IV Q8H PRN PRN Reason: Nausea And Vomiting Sodium Chloride (Sodium Chloride Flush Syringe 10 Ml) 10 ml IV BID [facility] Last Admin: 05/02/18 02:49 Dose: 10 ml Sodium Chloride (Sodium Chloride Flush Syringe 10 Ml) 10 ml IV PRN PRN PRN Reason: LINE FLUSH Tramadol HCl (Ultram) 50 mg PO Q4H PRN PRN Reason: Pain, Moderate (4-6) Last Admin: 05/02/18 02:48 Dose: 50 mg Review of Systems - Review of Systems Constitutional: no weight loss, no weight gain Eyes: no change in vision Ears, Nose, Throat: no difficulty swallowing Breasts: deferred Cardiovascular: chest pain, shortness of breath Respiratory: no cough, no shortness of breath, no wheezing Gastrointestinal: abdominal pain, constipation, heartburn, no nausea, no vomiting, no change in bowel habits, no hematemesis, no melena, no hematochezia Rectal: no pain, no incontinence Female Genitourinary: deferred Musculoskeletal: no gait dysfunction, no joint pain, no muscle pain Integumentary: no deferred, no rash, no pruritis Neurological: no paralysis, no weakness Psychiatric: no memory loss Endocrine: no cold intolerance, no heat intolerance Hematologic/Lymphatic: no easy bruising, no easy bleeding Allergic/Immunologic: no wheezing Exam - Constitutional Vital Signs: Temp Pulse Resp BP Pulse Ox 98.5 F 43 L 18 178/104 100 05/02/18 08:22 05/02/18 08:22 05/02/18 08:22 05/02/18 08:22 05/02/18 08:22 General appearance: no acute distress, well-nourished - EENT Eyes: PERRL ENT: hearing intact, clear oral mucosa, dentition normal - Neck Neck: supple, normal ROM, no masses or JVD - Respiratory Respiratory effort: normal Respiratory: bilateral: CTA - Breasts Breasts: deferred - Cardiovascular Rhythm: regular Heart Sounds: Present: S1 & S2. Absent: gallop, rub Extremities: pulses intact, No edema, normal color, Full ROM - Gastrointestinal General gastrointestinal: Present: soft, tender (tender in RLQ with no rebound or guarding), non-distended, normal bowel sounds, other (fullness in LLQ. Laparoscopic surgical scars are noted). Absent: hepatomegaly, splenomegaly, mass Rectal Exam: deferred - Genitourinary Female Genitourinary: deferred - Integumentary Integumentary: Present: clear, warm, dry - Neurologic Neurological: alert and oriented x3 - Labs CBC & Chem 7: 05/01/18 19:14 05/01/18 19:14 Lab Results: Laboratory Results - last 24 hr 05/01/18 05/01/18 05/02/18 19:14 19:14 07:47 WBC 7.5 RBC 4.44 Hgb 11.7 Hct 34.4 MCV 77 L MCH 26 L MCHC 34 RDW 15.3 H Plt Count 248 Lymph % (Auto) 31.9 [place] % (Auto) 7.9 H Eos % (Auto) 4.3 Baso % (Auto) 0.6 Lymph # 2.4 Anderson # 0.6 Eos # 0.3 Baso # 0.0 Seg Neutrophils % 55.3 Seg Neutrophils # 4.2 D-Dimer Sodium 137 Potassium 3.3 L Chloride 96.5 L Carbon Dioxide 30 Anion Gap 14 BUN 6 L Creatinine 0.6 L Estimated GFR > 60 BUN/Creatinine Ratio 10 Glucose 84 Calcium 9.1 Total Bilirubin 0.30 AST 20 ALT 15 Alkaline Phosphatase 58 Troponin T < 0.010 Total Protein 6.5 Albumin 3.8 L Albumin/Globulin Ratio 1.4 TSH 05/02/18 05/02/18 07:47 07:47 WBC RBC Hgb Hct MCV MCH MCHC RDW Plt Count Lymph % (Auto) [place] % (Auto) Eos % (Auto) Baso % (Auto) Lymph # [place] # Eos # Baso # Seg Neutrophils % Seg Neutrophils # D-Dimer 192.92 Sodium Potassium Chloride Carbon Dioxide Anion Gap BUN Creatinine Estimated GFR BUN/Creatinine Ratio Glucose Calcium Total Bilirubin AST ALT Alkaline Phosphatase Troponin T Total Protein Albumin Albumin/Globulin Ratio TSH 2.250 - Imaging CT Scan: report reviewed, image reviewed Assessment and Plan - Patient Problems (1) Abdominal pain Current Visit: Yes Status: Acute Qualifiers: Abdominal location: generalized Qualified Code(s): R10.84 - Generalized abdominal pain Plan to address problem: The etiology of her pain is unclear, but may have a contribution from constipation or adhesions. No suspected acute process such as appendicitis or diverticulitis by CT scan. WBC normal. Will order laxatives and observe. If worsens, consider general surgery consultation. Outpatient colonoscopy is advisable for chronic constipation. (2) Pelvic pain Current Visit: Yes Status: Chronic
[2018-05-02] MEDS ORDERED: APRESOLINE PO SCH (10:00)
[2018-05-02] MEDS: CATAPRES PO SCH ×2 (11:00→22:02)
--- NOTE | 2018-05-02 14:09 | Event Note ---
Date: 05/02/18 Reviewed consultants' notes. Patient without a surgical abdomen ok to transfer to [facility].. Attempted to contact cardiology Office stated MD or [facility] will be contacted and call me back.
--- NOTE | 2018-05-02 14:27 | Event Note ---
Date: 05/02/[address] Simmons stated they with transfer patient to their care through the hospitalist to telemetry
[2018-05-02 14:42] LABS: Creatine Kinase MB 1.3 ng/mL (0.0-4.0)
[2018-05-02] MEDS ORDERED: CATAPRES PO SCH (15:44)
[2018-05-02] MEDS ORDERED: MIRALAX 3350 ONE (16:19)
--- NOTE | 2018-05-02 17:49 | History and Physical Report ---
History of Present Illness Date of admission: 05/01/18 17:37 Chief complaint: My chest hurts History of present illness: 38 YO Female with HTN, GERD, presents to ED for evaluation. Pt initially admitted to [facility]GRAM[facility]LY[facility] service for evaluation of abdominal pain. REpeat physical exam and and abdominal imaging were unremarkable. SYSTEMS PROGRAMMER ANALYST source of abdominal pain evaluated and ruled out. Pt also complained on concomitant pain in her chest. Pt states that pain was 6/10, substernal, nonradiating, not worsened with exertion, or relieved with rest. Pt denies shortness of breath, diaphoresis, unilateral leg swelling, calf pain, hemoptysis, productive cough, individual/ family history of DVT/PE. Pt was also found to be bradycardic with a heart rate in the 50's as well as EKG changes. Cardiology team consulted. Pt was subsequently discharged from [facility]S PROGRAMMER ANALYST service,and admitted to hospitalist service for cardiac evaluation. Pt transferred to Telemetry. Past History Past Medical History: GERD (H pylori), hypertension, other (heart murmur) Past Surgical History: (times 3), hysterectomy (robotic-assisted), Other (endometrial ablation carpel tunnel) Social history: () Family history: diabetes, hypertension Medications and Allergies Allergies Allergy/AdvReac Type Severity Reaction Status Date / Time morphine Allergy Angioedema Verified 12/26/17 18:04 Home Medications Medication Instructions Recorded Confirmed Last Taken Type cloNIDine [Catapres] 0.2 mg PO BID 06/06/17 05/01/18 05/01/18 History Acetaminophen/Codeine [Tylenol 1 tab PO Q6H PRN #12 tab 12/12/17 05/01/18 Rx /Codeine # 3 tab] traMADol [Ultram] 50 mg PO Q6HR PRN #15 tablet 01/31/18 05/01/18 Unknown Rx Active Meds: Active Medications Al Hydrox/Mg Hydrox/Simethicone (Alum-Mag Hydrox-Simeth [id number]/5ml) 30 ml PO Q4H PRN PRN Reason: Indigestion Last Admin: 05/02/18 05:52 Dose: 30 ml Amlodipine Besylate (Norvasc) 10 mg PO QDAY [facility] Clonidine HCl (Catapres) 0.1 mg PO Q12H [facility] Hydralazine HCl (Apresoline) 50 mg PO BID [facility] Sodium Chloride (Nacl 0.9% 1000 Ml) 1,000 mls @ 125 mls/hr IV DIRECT N[facility] Last Admin: 05/02/18 15:06 Dose: 125 mls/hr Ketorolac Tromethamine (Toradol) 30 mg IV Q6H PRN PRN Reason: Pain , Severe (7-10) Stop: 05/06/18 17:43 Last Admin: 05/02/18 16:38 Dose: 30 mg Ondansetron HCl (Zofran) 4 mg IV Q8H PRN PRN Reason: Nausea And Vomiting Polyethylene Glycol (Miralax 3350) 17 gm PO BID [facility] Sodium Chloride (Sodium Chloride Flush Syringe 10 Ml) 10 ml IV BID [facility] Last Admin: 05/02/18 02:49 Dose: 10 ml Sodium Chloride (Sodium Chloride Flush Syringe 10 Ml) 10 ml IV PRN PRN PRN Reason: LINE FLUSH Tramadol HCl (Ultram) 50 mg PO Q4H PRN PRN Reason: Pain, Moderate (4-6) Last Admin: 05/02/18 10:38 Dose: 50 mg Review of Systems Constitutional: no weight loss, no weight gain, no fever, no chills Ears, nose, mouth and throat: no ear pain, no ear discharge, no tinnitis, no decreased hearing, no nose pain, no nasal congestion, no nasal discharge Breasts: no change in shape, no swelling, no mass Cardiovascular: chest pain, no orthopnea, no palpitations, no syncope, no lightheadedness Respiratory: no cough, no cough with sputum, no excessive sputum, no hemoptysis Gastrointestinal: no nausea, no vomiting, no diarrhea, no constipation, no change in bowel habits Genitourinary Female: no pelvic pain, no flank pain, no menorrhagia, no dysuria , no urinary frequency, no urgency Rectal: no pain, no incontinence, no bleeding Musculoskeletal: no neck stiffness, no neck pain, no shooting arm pain, no arm numbness/tingling, no low back pain, no shooting leg pain Integumentary: no rash, no pruritis, no redness, no sores, no wounds Neurological: no transient paralysis, no paralysis, no weakness, no parathesias , no numbness, no tingling, no seizures Psychiatric: no anxiety, no memory loss, no change in sleep habits, no sleep disturbances, no insomnia, no hypersomnia Endocrine: no cold intolerance, no heat intolerance, no polyphagia, no excessive thirst, no polydipsia, no polyuria, no nocturia Hematologic/Lymphatic: no easy bruising, no easy bleeding, no lymphadenopathy, no lymphedema Allergic/Immunologic: no urticaria, no allergic rhinitis, no wheezing, no persistent infections, no anaphylaxis, no angioedema Exam - Constitutional Vitals: Temp Pulse Resp BP Pulse Ox 97.9 F 56 L 18 122/84 88 05/02/18 15:55 05/02/18 16:24 05/02/18 16:38 05/02/18 16:24 05/02/18 15:58 General appearance: Present: mild distress - EENT Eyes: Present: PERRL ENT: hearing intact, clear oral mucosa - Neck Neck: Present: supple, normal ROM - Respiratory Respiratory effort: normal Respiratory: bilateral: CTA - Cardiovascular Heart Sounds: Present: S1 & S2. Absent: rub, click - Extremities Extremities: pulses symmetrical, No edema Peripheral Pulses: within normal limits - Abdominal General gastrointestinal: Present: soft, non-tender, non-distended, normal bowel sounds Female genitourinary: Present: normal - Integumentary Integumentary: Present: clear, warm, dry - Musculoskeletal Musculoskeletal: gait normal, strength equal bilaterally - Psychiatric Psychiatric: appropriate mood/affect, intact judgment & insight - Neurologic Neurologic: CNII-XII intact, moves all extremities Results - Labs CBC & Chem 7: 05/01/18 19:14 05/01/18 19:14 Labs: Abnormal lab results 05/01/18 05/01/18 Range/Units 19:14 19:14 MCV 77 L (79-97) fl MCH 26 L (28-32) pg RDW 15.3 H (13.2-15.2) % [place] % (Auto) 7.9 H (0.0-7.3) % Potassium 3.3 L (3.6-5.0) mmol/L Chloride 96.5 L (98-107) mmol/L BUN 6 L (7-17) mg/dL Creatinine 0.6 L (0.7-1.2) mg/dL Albumin 3.8 L (3.9-5) g/dL Assessment and Plan - Patient Problems (1) ACS (acute coronary syndrome) Current Visit: Yes Status: Acute Plan to address problem: Cardiology consulted, Stress test, serial cardiac enzymes, ekg, telemetry, echo , supportive care, (2) HTN (hypertension) Current Visit: Yes Status: Chronic Qualifiers: Hypertension type: essential hypertension Qualified Code(s): I10 - Essential (primary) hypertension Plan to address problem: Monitor bp q shift, continue medical management (3) Sinus bradycardia Current Visit: Yes Status: Chronic Plan to address problem: Telemetry, echo, supportive care, serial ekg, cardiology consulted, (4) DVT prophylaxis Current Visit: Yes Status: Acute Plan to address problem: SCD to ble while in bed.
[2018-05-02] MEDS ORDERED: SODIUM CHLORIDE FLUSH SYRINGE 10 ML IV PRN (17:51)
[2018-05-02] MEDS ORDERED: TYLENOL PO PRN (17:51)
[2018-05-02] MEDS ORDERED: ZOFRAN IV PRN (17:51)
[2018-05-02] MEDS ORDERED: PROVENTIL IH PRN (17:51)
[2018-05-02] MEDS: APRESOLINE PO SCH (21:14)
[2018-05-02] MEDS: MIRALAX 3350 PO SCH (21:14)
[2018-05-02] MEDS ORDERED: SODIUM CHLORIDE FLUSH SYRINGE 10 ML IV SCH (22:00)
[2018-05-03] MEDS ORDERED: AMBIEN PO SCH (00:49)
[2018-05-03] MEDS: CATAPRES PO SCH ×2 (04:05→15:21)
[2018-05-03] MEDS: NORVASC PO SCH (10:02)
[2018-05-03] MEDS: MIRALAX 3350 PO SCH ×2 (10:02→22:50)
[2018-05-03] MEDS: APRESOLINE PO SCH ×2 (10:03→22:50)
--- NOTE | 2018-05-03 10:05 | Progress Note ---
Assessment and Plan 38 YO Female with HTN, GERD, presents to ED for evaluation. Pt initially admitted to REVERSE LOGISTICS ANALYST service for evaluation of abdominal pain. REpeat physical exam and and abdominal imaging were unremarkable. REVERSE LOGISTICS ANALYST source of abdominal pain evaluated and ruled out. Pt also complained on concomitant pain in her chest. Pt states that pain was 6/10, substernal, nonradiating, not worsened with exertion, or relieved with rest. Pt denies shortness of breath, diaphoresis, unilateral leg swelling, calf pain, hemoptysis, productive cough, individual/ family history of DVT/PE. Pt was also found to be bradycardic with a heart rate in the 50's as well as EKG changes. Cardiology team consulted. Pt was subsequently discharged from REVERSE LOGISTICS ANALYST service,and admitted to hospitalist service for cardiac evaluation. Pt transferred to Telemetry. - ACS (acute coronary syndrome) Serial cardiac enzymes are normal so far Cardiology consulted, Stress test, echo, supportive care, - HTN (hypertension): Monitor bp q shift, continue medical management - Hypokalemia With supplement. Recheck potassium and magnesium - Sinus bradycardia Telemetry, echo, supportive care, serial ekg, cardiology consulted, - DVT prophylaxis SCD to ble while in bed. Subjective Date of service: 05/03/18 Principal diagnosis: Chest pain, Interval history: Patient seen and examined appearance to have an dog similar chest pain and epigastric chest pain. Objective - Exam Narrative Exam: Constitutional: Well-nourished well-developed. In no distress Head: Normocephalic atraumatic Eyes: Pupils are equal round and reactive to light Nose: No enlarged turbinates, no septal deviation. Mouth: Moist mucous membranes. Neck: Supple no thyromegaly. No bruit. No JVD Heart: Regular rate and rhythm, S1-S2 abnormal. No rubs murmurs or gallop Lungs: Clear to auscultation bilaterally no rales or rhonchi Abdomen: Soft, nontender. Bowel sound are present. Extremities: No edema no cyanosis and no clubbing. Neuro: Alert oriented Oriented x3. No focal sensory or motor deficit. Skin: No rashes no hyperemic spots Psychiatry: Euthymic. Calm. - Constitutional Vitals: Vital Signs - 12hr 05/02/18 05/02/18 05/02/18 22:12 22:30 22:50 Temperature Pulse Rate Pulse Rate [ 66 Apical] Respiratory 20 20 Rate Blood Pressure 123/85 O2 Sat by Pulse 98 Oximetry 05/03/18 05/03/18 05/03/18 00:10 04:00 04:05 Temperature 98.6 F Pulse Rate 62 61 61 Pulse Rate [ Apical] Respiratory 18 20 Rate Blood Pressure 134/102 149/90 149/90 O2 Sat by Pulse 95 100 Oximetry 05/03/18 05/03/18 04:39 08:29 Temperature 97.3 F L Pulse Rate Pulse Rate [ Apical] Respiratory Rate Blood Pressure O2 Sat by Pulse 95 Oximetry - Labs CBC & Chem 7: 05/01/18 19:14 05/01/18 19:14
[2018-05-03] MEDS: SODIUM CHLORIDE FLUSH SYRINGE 10 ML IV SCH ×2 (10:11→22:50)
--- NOTE | 2018-05-03 10:21 | Progress Note ---
Assessment and Plan chest pain pleuritic Sinus bradycardia Hypertension Source of breath Status post hysterectomy Recommend continue amlodipine and low-dose clonidine for BP control anti- inflammatories for chest pain and coronary normal function with no significant regurgitations and no pericardial effusion and patient had negative stress test office. Possible discharge in a.m. advised patient to increase physical walking and respiratory spirometry Subjective Date of service: 05/03/18 Principal diagnosis: Chest pain, Interval history: chest pain with inspiration Objective Vital Signs Temp Pulse Pulse Pulse Resp Resp BP 05/03/18 10:03 60 151/95 05/03/18 10:02 60 151/95 05/03/18 08:29 05/03/18 04:39 97.3 F L 05/03/18 04:05 61 149/90 05/03/18 04:00 61 20 149/90 05/03/18 00:10 98.6 F 62 18 134/102 05/02/18 22:50 66 20 05/02/18 22:30 20 05/02/18 22:12 123/85 05/02/18 22:00 20 20 05/02/18 21:14 66 179/111 05/02/18 20:26 97.8 F 64 18 179/111 05/02/18 20:17 62 05/02/18 18:34 97.5 F L 16 144/107 05/02/18 17:59 98.7 F 55 L 19 166/99 05/02/18 17:08 20 05/02/18 16:38 18 05/02/18 16:24 56 L 05/02/18 15:59 122/84 05/02/18 15:58 66 135/93 05/02/18 15:55 97.9 F 54 L 18 150/104 05/02/18 15:00 56 L 20 05/02/18 11:53 97.7 F 18 05/02/18 11:43 45 L 181/114 05/02/18 11:40 45 L 05/02/18 11:00 48 L 165/116 05/02/18 10:38 20 BP BP Pulse Ox 05/03/18 10:03 05/03/18 10:02 05/03/18 08:29 95 05/03/18 04:39 05/03/18 04:05 05/03/18 04:00 100 05/03/18 00:10 95 07/13/18 22:50 98 05/02/18 22:30 05/02/18 22:12 05/02/18 22:00 05/02/18 21:14 05/02/18 20:26 98 05/02/18 20:17 05/02/18 18:34 05/02/18 17:59 97 05/02/18 17:08 05/02/18 16:38 05/02/18 16:24 122/84 05/02/18 15:59 05/02/18 15:58 88 05/02/18 15:55 99 05/02/18 15:00 147/92 100 05/02/18 11:53 05/02/18 11:43 05/02/18 11:40 181/114 100 05/02/18 11:00 05/02/18 10:38 - Physical Examination General: No Apparent Distress HEENT: Positive: PERRL, Normocephaly, Mucus Membranes Moist Neck: Positive: neck supple, trachea midline Cardiac: Positive: Reg Rate and Rhythm, Bradycardia Lungs: Positive: clear to auscultation Neuro: Positive: Grossly Intact Abdomen: Positive: Soft Skin: Positive: Clear. Negative: Rash, Wound Musculoskeletal: No Fluid Collection, No Pain, Normal Range of Motion - Labs and Meds Cardiac Enzymes 05/02/18 Range/Units 13:52 CK-MB (CK-2) 1.3 (0.0-4.0) ng/mL - Imaging and Cardiology EKG: report reviewed, image reviewed Exercise stress test: report reviewed (negative in office) Echo: pending, report reviewed (04/22/2018 showed EF 60-65%, mild TR. ) - Telemetry EKG Rhythm: Sinus Bradycardia (no pauses avg 50's) - EKG Sinus rhythms and dysrhythmias: sinus bradycardia Repolarization changes or abnormalities: ST or T wave suggestive of ischemia
[2018-05-03] MEDS: MOTRIN PO PRN ×2 (12:01→23:47)
[2018-05-03] MEDS: TORADOL IV PRN (15:21)
[2018-05-03] MEDS: ULTRAM PO PRN (17:40)
[2018-05-03] MEDS ORDERED: CITRATE OF MAGNESIA PO ONE ×2 (21:00→23:30)
[2018-05-03] MEDS ORDERED: AMBIEN PO ONE (23:00)
[2018-05-04] MEDS: CATAPRES PO SCH (05:00)
[2018-05-04 06:22] VITALS: BP 133/86
[2018-05-04] MEDS: ULTRAM PO PRN (06:56)
[2018-05-04] MEDS: MIRALAX 3350 PO SCH (11:38)
[2018-05-04] MEDS: APRESOLINE PO SCH (11:38)
[2018-05-04] MEDS: SODIUM CHLORIDE FLUSH SYRINGE 10 ML IV SCH (11:39)
[2018-05-04] MEDS: NORVASC PO SCH (11:39)
[2018-05-04] MEDS: MOTRIN PO PRN (11:43)
--- NOTE | 2018-05-04 12:53 | Discharge Summary ---
Providers - Providers Date of Admission: 05/01/18 17:37 Date of discharge: 05/04/18 Attending physician: MICHELLE MTATHEWS 05/02/18 04:26 Consult to Physician [CONS] Routine Comment: Consulting Provider: VESTA KING Physician Instructions: Reason For Exam: continuity of care 05/02/18 08:23 Consult to Physician [CONS] Routine Comment: Spoke with Dr Whitney will see her today Consulting Provider: ELICIA WHITNEY Physician Instructions: Reason For Exam: abdominal pain patient of [facility] Primary care physician: SIRISHA COHEN Hospitalization Condition: Good Hospital course: Patient presented with chest pain after recent hysterectomy. Patient hospital course was complicated by hypotension thought to be secondary to clonidine. Clonidine was decreased. Patient was evaluated for chest pain. Had negative isoenzymes negative cardiac enzymes negative stress test. Patient was treated on amlodipine for blood pressure control. Had cardiology evaluation is stabilized for discharge. Disposition: DC- TO HOME OR SELFCARE Core Measure Documentation - Palliative Care Palliative Care/ Comfort Measures: Not Applicable - Core Measures Any of the following diagnoses?: none Exam - Constitutional Vitals: Temp Pulse Resp BP Pulse Ox 98.2 F 89 18 133/86 100 05/04/18 05:13 05/04/18 05:13 05/04/18 05:13 05/04/18 05:13 05/04/18 09:27 General appearance: Present: no acute distress, well-nourished - EENT Eyes: Present: PERRL ENT: hearing intact, clear oral mucosa - Neck Neck: Present: supple, normal ROM - Respiratory Respiratory effort: normal Respiratory: bilateral: CTA - Cardiovascular Heart Sounds: Present: S1 & S2. Absent: rub, click - Extremities Extremities: pulses symmetrical, No edema Peripheral Pulses: within normal limits - Abdominal General gastrointestinal: Present: soft, non-tender, non-distended, normal bowel sounds Female genitourinary: Present: normal - Integumentary Integumentary: Present: clear, warm, dry - Musculoskeletal Musculoskeletal: gait normal, strength equal bilaterally - Psychiatric Psychiatric: appropriate mood/affect, intact judgment & insight - Neurologic Neurologic: CNII-XII intact, moves all extremities Plan Activity: no restrictions Weight Bearing Status: Full Weight Bearing Diet: low fat Follow up with: SIRISHA COHEN MD [Primary Care Provider] - 7 Days Prescriptions: Acetaminophen/Codeine [Tylenol /Codeine # 3 tab] 1 tab PO Q6H PRN #12 tab PRN Reason: Pain amLODIPine [Norvasc] 10 mg PO QDAY #30 tablet cloNIDine [Catapres] 0.1 mg PO Q12H #60 tablet hydrALAZINE [Apresoline TAB] 50 mg PO BID #60 tablet Ibuprofen [Motrin 800 MG tab] 800 mg PO Q8H PRN #30 tablet PRN Reason: Pain, Mild (1-3) traMADol [Ultram 50 MG tab] 50 mg PO Q6HR PRN #15 tablet PRN Reason: Pain
[2018-05-04] MEDS ORDERED: DILAUDID IM PRN (13:48)
== END 2018-05-04 15:41 | disposition home or self-care (01) ==
LOC: 3A 17:24 → UNDOADMIN 17:24 → OB 17:37 → UNDOADMOB 18:45 → INTOOBSV 18:45 → 4A 05-02 18:23
PROVIDERS: ADMIT Obstetrics & Gynecology; ATTEND Internal Medicine
DX: R10.2 Pelvic and perineal pain (principal); R10.84 Generalized abdominal pain; K21.9 Gastro-esophageal reflux disease without esophagitis; I10 Essential (primary) hypertension; Z83.3 Family history of diabetes mellitus; Z82.49 Family history of ischemic heart disease and other diseases of the circulatory system
CPT/HCPCS: 36415; 71045; 74176; 80053; 82550; 82553; 84443; 84484; 85025; 85379; 93005; 93010; 93306; 96361; 96372; 96374; 96376; G0378; G0379; J1170; J1885; J7030

== ENCOUNTER 2019-12-01 09:55 | Emergency (ER) | payer OTHER ==
[2019-12-01 10:03] VITALS: BP 120/76
[2019-12-01] MEDS ORDERED: traMADol 50 MG TAB PO ONE (12:08)
[2019-12-01 12:29] LABS: HCG Qualitative,Urine Negative (Negative)
[2019-12-01 12:42] LABS: Bacteria,Urine 2+ /HPF (Negative); Bilirubin,Urine NEG (Negative); Blood,Urine MOD (Negative); Color,Urine Yellow (Yellow); Mucus,Urine 2+ /HPF; Protein,Urine <15 mg/dL mg/dL (Negative)
--- NOTE | 2019-12-01 12:51 | Emergency Department Report ---
ED Female HPI - General Chief complaint: Abdominal Pain Stated complaint: CHEST AND STOMACH PAIN Time Seen by Provider: 12/01/19 10:37 Source: patient Mode of arrival: Ambulatory Limitations: No Limitations - History of Present Illness Initial comments: This is a 39-year-old female who presents complaining of pelvic pain that began yesterday. Patient states that she went to [facility] and was evaluated yesterday for her yearly Pap smear. Patient stated that she noted the pelvic pain to her [facility] doctor who then recommended an ultrasound and ordered it for next week and patient states that she was told to follow-up with the ED if any worsening symptoms. Patient does state that she is experiencing dysuria with some blood noticed in her urine. Patient denies any vaginal discharge, vaginal odor or abnormal bleeding. Patient does note a history of partial hysterectomy in 2018. Patient denies nausea, vomiting, diarrhea, chest pain or shortness of breath - Related Data Previous Rx's Medication Instructions Recorded Last Taken Type Acetaminophen/Codeine [Tylenol 1 tab PO Q6H PRN #12 tab 05/04/18 Unknown Rx /Codeine # 3 tab] amLODIPine 10 mg PO QDAY #30 tablet 05/04/18 Unknown Rx cloNIDine [Catapres] 0.1 mg PO Q12H #60 tablet 05/04/18 Unknown Rx hydrALAZINE [Apresoline TAB] 50 mg PO BID #60 tablet 05/04/18 Unknown Rx traMADoL [Ultram 50 MG tab] 50 mg PO Q4H PRN tablet 05/04/18 Unknown Rx Ibuprofen [Motrin 800 MG tab] 800 mg PO Q8H PRN #30 tablet 12/01/19 Unknown Rx Nitrofurantoin [place]/M-Cryst 100 mg PO Q12HR #14 capsule 12/01/19 Unknown Rx [Macrobid CAP] traMADoL [Ultram 50 MG tab] 50 mg PO Q6HR PRN #15 tablet 12/01/19 Unknown Rx Allergies Allergy/AdvReac Type Severity Reaction Status Date / Time morphine Allergy Angioedema Verified 12/01/19 10:03 ED Review of Systems ROS: Stated complaint: CHEST AND STOMACH PAIN Other details as noted in HPI Comment: All other systems reviewed and negative ED Past Medical Hx - Past Medical History Previous Medical History?: Yes Hx Hypertension: Yes (since 2005) Hx Congestive Heart Failure: No Hx Diabetes: No Hx Deep Vein Thrombosis: Yes (2017) Hx Headaches / Migraines: Yes (migraines) Hx Psychiatric Treatment: Yes (anxiety) Hx Asthma: No Hx Tuberculosis: Yes Additional medical history: heart murmur,various veins - Surgical History Past Surgical History?: Yes Hx Appendectomy: Yes Additional Surgical History: tubaligation,left carpel tunnel surgery, HYSTERECTOMY - Social History Smoking Status: Current Every Day Smoker Substance Use Type: None - Medications Home Medications: Home Medications Medication Instructions Recorded Confirmed Last Taken Type Acetaminophen/Codeine [Tylenol 1 tab PO Q6H PRN #12 tab 05/04/18 Unknown Rx /Codeine # 3 tab] amLODIPine 10 mg PO QDAY #30 tablet 05/04/18 Unknown Rx cloNIDine [Catapres] 0.1 mg PO Q12H #60 tablet 05/04/18 Unknown Rx hydrALAZINE [Apresoline TAB] 50 mg PO BID #60 tablet 05/04/18 Unknown Rx traMADoL [Ultram 50 MG tab] 50 mg PO Q4H PRN tablet 05/04/18 Unknown Rx Ibuprofen [Motrin 800 MG tab] 800 mg PO Q8H PRN #30 tablet 12/01/19 Unknown Rx Nitrofurantoin [place]/M-Cryst 100 mg PO Q12HR #14 capsule 12/01/19 Unknown Rx [Macrobid CAP] traMADoL [Ultram 50 MG tab] 50 mg PO Q6HR PRN #15 tablet 12/01/19 Unknown Rx ED Physical Exam - General Limitations: No Limitations General appearance: alert, in no apparent distress - Head Head exam: Present: atraumatic, normocephalic - Eye Eye exam: Present: normal appearance - ENT ENT exam: Present: mucous membranes moist - Neck Neck exam: Present: normal inspection - Respiratory Respiratory exam: Present: normal lung sounds bilaterally. Absent: respiratory distress - Cardiovascular Cardiovascular Exam: Present: regular rate, normal rhythm. Absent: systolic murmur, diastolic murmur, rubs, gallop - GI/Abdominal GI/Abdominal exam: Present: soft, normal bowel sounds - Extremities Exam Extremities exam: Present: normal inspection - Back Exam Back exam: Present: normal inspection - Neurological Exam Neurological exam: Present: alert, oriented X3 - Psychiatric Psychiatric exam: Present: normal affect, normal mood - Skin Skin exam: Present: warm, dry, intact, normal color. Absent: rash ED Course Vital Signs 0212/01/19 12/01/19 10:01 12:16 12:49 Temperature 98.8 F Pulse Rate 97 H Respiratory 16 18 18 Rate Blood Pressure 120/76 O2 Sat by Pulse 98 Oximetry ED Medical Decision Making - Radiology Data Radiology results: report reviewed, image reviewed TRANSABDOMINAL PELVIC AND TRANSVAGINAL ULTRASOUND HISTORY: pain pelvic COMPARISON: None. TECHNIQUE: Routine transabdominal and transvaginal pelvic ultrasound performed. FINDINGS: TRANSABDOMINAL PELVIC ULTRASOUND: Uterus: Surgically absent. Endometrium: Surgically absent. Right Ovary: Normal measuring 1.2 x 1.8 x 1.1 cm. Left Ovary: Surgically absent. Additional findings: Transvaginal exam was performed for better delineation of the pelvic structures. TRANSVAGINAL PELVIC ULTRASOUND: Uterus: Surgically absent. Endometrium: Surgically absent. Right Ovary: Normal measuring 1.2 x 1.8 x 1.1 cm. Left Ovary: Surgically absent. Additional findings: No free fluid or adnexal mass. IMPRESSION: 1. Normal pelvis status post hysterectomy and left salpingo-oophorectomy. 2. Normal right ovary. Signer Name: Tolu Sesay MD Signed: 12/01/2019 1:23 PM Workstation Name: [id number] Transcribed By: REF Dictated By: TOLU SESAY MD Electronically Authenticated By: TOLU SESAY MD Signed Date/Time: 12/01/19 1323 - Medical Decision Making This is a 39-year-old female who presents to the pelvic pain most likely secondary to scar tissue from previous surgeries. Discussed with patient to follow-up with her steamship agent. Ultrasound shows no acute findings. Blade urinalysis does show positive bacteria so we will treat with Macrobid. Vital signs are normal patient is in no acute distress. Critical care attestation.: If time is entered above; I have spent that time in minutes in the direct care of this critically ill patient, excluding procedure time. ED Disposition Clinical Impression: Pelvic pain, Acute cystitis Disposition: -01 TO HOME OR SELFCARE Is pt being admited?: No Does the pt Need Aspirin: No Condition: Stable Instructions: Abdominal Pain (ED) Additional Instructions: Make sure to follow up with the primary care physician as discussed. Take all your medications as you've been prescribed. If you have any worsening symptoms or develop new symptoms please return to ED immediately. Prescriptions: Nitrofurantoin [place]/M-Cryst [Macrobid CAP] 100 mg PO Q12HR #14 capsule Ibuprofen [Motrin 800 MG tab] 800 mg PO Q8H PRN #30 tablet PRN Reason: Pain, Mild (1-3) traMADoL [Ultram 50 MG tab] 50 mg PO Q6HR PRN #15 tablet PRN Reason: Pain Referrals: [facility] [Primary Care Provider] - 3-5 Days Forms: Accompanied Note, Work/School Release Form(ED) Time of Disposition: 13:56
--- NOTE | 2019-12-01 13:27 | Ultrasound Report ---
TRANSABDOMINAL PELVIC AND TRANSVAGINAL ULTRASOUND HISTORY: pain pelvic COMPARISON: None. TECHNIQUE: Routine transabdominal and transvaginal pelvic ultrasound performed. FINDINGS: TRANSABDOMINAL PELVIC ULTRASOUND: Uterus: Surgically absent. Endometrium: Surgically absent. Right Ovary: Normal measuring 1.2 x 1.8 x 1.1 cm. Left Ovary: Surgically absent. Additional findings: Transvaginal exam was performed for better delineation of the pelvic structures. TRANSVAGINAL PELVIC ULTRASOUND: Uterus: Surgically absent. Endometrium: Surgically absent. Right Ovary: Normal measuring 1.2 x 1.8 x 1.1 cm. Left Ovary: Surgically absent. Additional findings: No free fluid or adnexal mass. IMPRESSION: 1. Normal pelvis status post hysterectomy and left salpingo-oophorectomy. 2. Normal right ovary. Signer Name: Tolu Dickson MD Signed: 12/01/2019 1:23 PM Workstation Name: [id number]
== END 2019-12-01 14:08 | disposition home or self-care (01) ==
LOC: ED 09:55
DX: N30.00 Acute cystitis without hematuria (principal); R10.2 Pelvic and perineal pain; I10 Essential (primary) hypertension; G43.909 Migraine, unspecified, not intractable, without status migrainosus; F41.9 Anxiety disorder, unspecified; A15.9 Respiratory tuberculosis unspecified; F17.200 Nicotine dependence, unspecified, uncomplicated; Z90.49 Acquired absence of other specified parts of digestive tract; Z90.710 Acquired absence of both cervix and uterus; Z88.6 Allergy status to analgesic agent; Z79.899 Other long term (current) drug therapy; Z98.51 Tubal ligation status; Z98.890 Other specified postprocedural states
CPT/HCPCS: 76830; 76856; 81001; 81025; 93005; 93010; 99284

== ENCOUNTER 2020-04-05 10:55 | Emergency (ER) | payer OTHER ==
--- NOTE | 2020-04-05 11:04 | Emergency Department Report ---
Blank Doc - Documentation Documentation: 39-year-old female that presents with right rib pain s/p fall. Denies any other pain and complaints. Exam: Right lateral rib pain with ecchonymosis noted. No spinal tenderness. This initial assessment/diagnostic orders/clinical plan/treatment(s) is/are subject to change based on patient's health status, clinical progression and re- assessment by fellow clinical providers in the ED. Further treatment and workup at subsequent clinical providers discretion. Patient/guardians urged not to elope from the ED as their condition may be serious if not clinically assessed and managed. Initial orders include: 1- Patient sent to [facility] for further evaluation and treatment 2- xrays
[2020-04-05] MEDS ORDERED: KETOROLAC 60 MG/2 ML INJ IM ONE (11:40)
--- NOTE | 2020-04-05 11:40 | Emergency Department Report ---
ED Fall HPI - General Chief Complaint: Fall Stated Complaint: FALL INJURY/RIB PAIN EXTREME Time Seen by Provider: 04/05/20 11:02 Source: patient Mode of arrival: Ambulatory - History of Present Illness Initial Comments: Patient is a 39-year-old female that tripped and fell and landed on her right side. She fell down 3 steps. No LOC. She is here with right sided rib cage pain. Vital signs are stable. Saturation is 100% on room air. No increased work of breathing. Bruising noted to the right thoracic rib cage area. Patient denies any other pain or injury. She is ambulatory and comes to the ER via private vehicle. X-ray to rule out fracture and pneumothorax MD Complaint: fall -: Sudden, days(s) Fall From: standing Fall Witnessed: yes, by family Place Fall Occurred: home Prolonged Down Time?: no Symptoms Prior to Fall: none Location: chest Severity: moderate Quality: aching Associated Symptoms: denies - Related Data Previous Rx's Medication Instructions Recorded Last Taken Type amLODIPine 10 mg PO QDAY #30 tablet 05/04/18 Unknown Rx cloNIDine [Catapres] 0.1 mg PO Q12H #60 tablet 05/04/18 Unknown Rx hydrALAZINE [Apresoline TAB] 50 mg PO BID #60 tablet 05/04/18 Unknown Rx Ibuprofen [Motrin] 800 mg PO Q8HR PRN #30 tablet 04/05/20 Unknown Rx traMADoL [Ultram] 50 mg PO Q6HR PRN #10 tablet 04/05/20 Unknown Rx Allergies Allergy/AdvReac Type Severity Reaction Status Date / Time morphine Allergy Angioedema Verified 12/01/19 10:03 ED Review of Systems ROS: Stated complaint: FALL INJURY/RIB PAIN EXTREME Other details as noted in HPI Comment: All other systems reviewed and negative ED Past Medical Hx - Past Medical History Previous Medical History?: Yes Hx Hypertension: Yes (since 2005) Hx Congestive Heart Failure: No Hx Diabetes: No Hx Deep Vein Thrombosis: Yes (2016) Hx Headaches / Migraines: Yes (migraines) Hx Psychiatric Treatment: Yes (anxiety) Hx Asthma: No Hx Tuberculosis: Yes Additional medical history: heart murmur,various veins - Surgical History Past Surgical History?: Yes Hx Appendectomy: Yes Additional Surgical History: tubaligation,left carpel tunnel surgery, HYSTERECTOMY - Family History Family history: no significant - Social History Smoking Status: Never Smoker Substance Use Type: None - Medications Home Medications: Home Medications Medication Instructions Recorded Confirmed Last Taken Type amLODIPine 10 mg PO QDAY #30 tablet 05/04/18 Unknown Rx cloNIDine [Catapres] 0.1 mg PO Q12H #60 tablet 05/04/18 Unknown Rx hydrALAZINE [Apresoline TAB] 50 mg PO BID #60 tablet 05/04/18 Unknown Rx Ibuprofen [Motrin] 800 mg PO Q8HR PRN #30 tablet 04/05/20 Unknown Rx traMADoL [Ultram] 50 mg PO Q6HR PRN #10 tablet 04/05/20 Unknown Rx ED Physical Exam - General Limitations: No Limitations General appearance: alert, in no apparent distress - Head Head exam: Present: atraumatic, normocephalic - Eye Eye exam: Present: normal appearance - ENT ENT exam: Present: mucous membranes moist - Neck Neck exam: Present: normal inspection - Respiratory Respiratory exam: Present: normal lung sounds bilaterally. Absent: respiratory distress - Cardiovascular Cardiovascular Exam: Present: regular rate, normal rhythm. Absent: systolic murmur, diastolic murmur, rubs, gallop - GI/Abdominal GI/Abdominal exam: Present: soft, normal bowel sounds - Extremities Exam Extremities exam: Present: normal inspection - Back Exam Back exam: Present: normal inspection - Neurological Exam Neurological exam: Present: alert, oriented X3 - Psychiatric Psychiatric exam: Present: normal affect, normal mood - Skin Skin exam: Present: warm, dry, intact, normal color. Absent: rash - Expanded Skin Exam Expanded 1 - level of ecchymosis; 2 inc by 2 inc. no open area. ED Medical Decision Making - Radiology Data Radiology results: report reviewed, image reviewed interpreted by me: Positive fracture Positive fracture - Medical Decision Making X-ray noted. No pneumothorax Patient medicated for pain. Patient is ambulatory and nontoxic. She is in no acute distress. Patient has been given an incentive spirometer and taught splinting. Patient being discharged home with discharge instructions including deep breathing. She is discharging with her incentive spirometer. Vital signs remained stable. Oxygen sat 100%. RN has been asked to place vital signs in the EMR. They have been written manually on a piece paper. - Differential Diagnosis ro rib fx versus contusion Critical care attestation.: If time is entered above; I have spent that time in minutes in the direct care of this critically ill patient, excluding procedure time. ED Disposition Clinical Impression: Fall, Rib pain on right side, Rib fracture Disposition: TO HOME OR SELFCARE Is pt being admited?: No Does the pt Need Aspirin: No Condition: Stable Instructions: Contusion in Adults (ED) Additional Instructions: warm compresses over the counter tylenol may be used MEDS ORDERED TODAY deep breaths every hour TO AVOID LUNG COLLAPSE follow up with pcpin 48 hours referral below Prescriptions: Ibuprofen [Motrin] 800 mg PO Q8HR PRN #30 tablet PRN Reason: Pain, Moderate (4-6) traMADoL [Ultram] 50 mg PO Q6HR PRN #10 tablet PRN Reason: Pain Referrals: JOVI HORN MD [Staff Physician] - 3-5 Days Time of Disposition: 11:39
--- NOTE | 2020-04-05 11:51 | XRay Report ---
RIGHT RIBS 4 VIEWS HISTORY: Pain after fall, patient fell off stairs at home COMPARISON: None. IMPRESSION: Subtle nondisplaced fractures are identified in the right lateral eighth and ninth ribs. The remaining right ribs are intact. The right lung is well-aerated. Signer Name: Juan C Heard Jr, MD Signed: 04/05/2020 11:47 AM Workstation Name: [id number]
[2020-04-05] MEDS ORDERED: HYDROcodone/ACETAMINOPHEN 5-325 MG TAB PO ONE (11:54)
[2020-04-05 12:26] VITALS: BP 166/111
== END 2020-04-05 12:37 | disposition home or self-care (01) ==
LOC: ED 10:55
DX: S22.31XA Fracture of one rib, right side, initial encounter for closed fracture (principal); I10 Essential (primary) hypertension; G43.909 Migraine, unspecified, not intractable, without status migrainosus; F41.9 Anxiety disorder, unspecified; Z98.51 Tubal ligation status; Z90.710 Acquired absence of both cervix and uterus; Z90.49 Acquired absence of other specified parts of digestive tract; Z98.890 Other specified postprocedural states; Z79.899 Other long term (current) drug therapy; Z88.6 Allergy status to analgesic agent; W10.9XXA Fall (on) (from) unspecified stairs and steps, initial encounter; Y93.89 Activity, other specified; Y92.89 Other specified places as the place of occurrence of the external cause; Y99.8 Other external cause status
CPT/HCPCS: 71101; 96372; 99283; J1885

== ENCOUNTER 2021-09-26 12:57 | Emergency (ER) | payer OTHER ==
[2021-09-26] MEDS ORDERED: cloNIDine 0.2 MG TAB PO ONE (13:16)
[2021-09-26 13:33] LABS: Bilirubin,Urine NEG (Negative); Blood,Urine SM (Negative); Color,Urine Yellow (Yellow); Mucus,Urine FEW /HPF; Protein,Urine <15 mg/dL mg/dL (Negative); Urobilinogen,Urine < 2.0 mg/dL (<2.0)
--- NOTE | 2021-09-26 14:10 | Emergency Department Report ---
ED General Adult HPI - General Chief complaint: High BP Stated complaint: HTN Time Seen by Provider: 09/26/21 13:08 Source: patient Mode of arrival: Ambulatory Limitations: No Limitations - History of Present Illness Initial comments: Patient is a 41-year-old female presents emergency room stating that she was sent by her neurologist due to an elevated blood pressure in clinic today. She states that she was going to her neurologist for follow-up for migraines and had her blood pressure taken and states that it was elevated. She states that she has been having lightheadedness. Patient states that she has been out of her clonidine for 2 days. She states that she is post to be taking clonidine 0.2 mg twice daily. She states her medical record administrator is Dr. Gutierrez. She denies any shortness of breath, chest pain, vision changes, numbness, weakness, speech disturbance, gait disturbance. Allergy to morphine. - Related Data Previous Rx's Medication Instructions Recorded Last Taken Type amLODIPine 10 mg PO QDAY #30 tablet 05/04/18 Unknown Rx cloNIDine [Catapres] 0.1 mg PO Q12H #60 tablet 05/04/18 Unknown Rx Ibuprofen [Motrin 800 MG tab] 800 mg PO Q8HR PRN #30 tablet 04/05/20 Unknown Rx traMADoL [Ultram 50 MG tab] 50 mg PO Q6HR PRN #10 tablet 04/05/20 Unknown Rx Ketorolac [Toradol] 10 mg PO Q6H PRN #10 tablet 05/03/20 Unknown Rx Pantoprazole [Protonix TAB] 40 mg PO QDAY #30 tablet 05/03/20 Unknown Rx hydrALAZINE [Apresoline TAB] 100 mg PO TID #90 tab 05/03/20 Unknown Rx cloNIDine [Catapres] 0.2 mg PO BID #60 tablet 09/26/21 Unknown Rx Allergies Allergy/AdvReac Type Severity Reaction Status Date / Time morphine Allergy Angioedema Verified 12/01/19 10:03 ED Review of Systems ROS: Stated complaint: HTN Other details as noted in HPI Comment: All other systems reviewed and negative ED Past Medical Hx - Past Medical History Hx Hypertension: Yes Hx Congestive Heart Failure: No Hx Diabetes: No Hx Deep Vein Thrombosis: Yes (2017) Hx Headaches / Migraines: Yes (migraines) Hx Psychiatric Treatment: Yes (anxiety) Hx Asthma: No Hx Tuberculosis: Yes Additional medical history: heart murmur,various veins - Surgical History Hx Appendectomy: Yes Additional Surgical History: tubaligation,left carpel tunnel surgery, HYSTERECTOMY - Social History Smoking Status: Never Smoker - Medications Home Medications: Home Medications Medication Instructions Recorded Confirmed Last Taken Type amLODIPine 10 mg PO QDAY #30 tablet 05/04/18 Unknown Rx cloNIDine [Catapres] 0.1 mg PO Q12H #60 tablet 05/04/18 Unknown Rx Ibuprofen [Motrin 800 MG tab] 800 mg PO Q8HR PRN #30 tablet 04/05/20 Unknown Rx traMADoL [Ultram 50 MG tab] 50 mg PO Q6HR PRN #10 tablet 04/05/20 Unknown Rx Ketorolac [Toradol] 10 mg PO Q6H PRN #10 tablet 05/03/20 Unknown Rx Pantoprazole [Protonix TAB] 40 mg PO QDAY #30 tablet 05/03/20 Unknown Rx hydrALAZINE [Apresoline TAB] 100 mg PO TID #90 tab 05/03/20 Unknown Rx cloNIDine [Catapres] 0.2 mg PO BID #60 tablet 09/26/21 Unknown Rx ED Physical Exam - General Limitations: No Limitations General appearance: alert, in no apparent distress - Head Head exam: Present: atraumatic, normocephalic - Eye Eye exam: Present: normal appearance - ENT ENT exam: Present: mucous membranes moist - Respiratory Respiratory exam: Present: normal lung sounds bilaterally. Absent: respiratory distress, wheezes, rales, rhonchi, stridor, chest wall tenderness, accessory muscle use, decreased breath sounds, prolonged expiratory - Cardiovascular Cardiovascular Exam: Present: regular rate, normal rhythm, normal heart sounds. Absent: systolic murmur, diastolic murmur, rubs, gallop - Neurological Exam Neurological exam: Present: alert, oriented X3, CN II-XII intact, normal gait. Absent: motor sensory deficit - Psychiatric Psychiatric exam: Present: normal affect, normal mood - Skin Skin exam: Present: warm, dry, intact ED Course Vital Signs 09/26/21 09/26/21 09/26/21 13:04 13:27 14:20 Temperature 98.3 F Pulse Rate 106 H 106 H Respiratory 18 Rate Blood Pressure 187/144 183/129 [Right] O2 Sat by Pulse 100 Oximetry 09/26/21 09/26/21 15:33 17:14 Temperature 98 F Pulse Rate 130 H 122 H Respiratory 18 Rate Blood Pressure 157/106 [Right] O2 Sat by Pulse 100 100 Oximetry ED Medical Decision Making - Lab Data Result diagrams: 09/26/21 13:46 09/26/21 13:46 Lab Results 09/26/21 09/26/21 09/26/21 Range/Units 13:46 13:46 Unknown WBC 7.3 (4.5-11.0) K/mm3 RBC 5.90 H (3.65-5.03) M/mm3 Hgb 14.3 (10.1-14.3) gm/dl Hct 44.6 H (30.3-42.9) % MCV 76 L (79-97) fl MCH 24 L (28-32) pg MCHC 32 (30-34) % RDW 16.5 H (13.2-15.2) % Plt Count 312 (140-440) K/mm3 Lymph % (Auto) 25.7 (13.4-35.0) % [place] % (Auto) 6.4 (0.0-7.3) % Eos % (Auto) 0.7 (0.0-4.3) % Baso % (Auto) 0.9 (0.0-1.8) % Lymph # (Auto) 1.9 (1.2-5.4) K/mm3 [place] # (Auto) 0.5 (0.0-0.8) K/mm3 Eos # (Auto) 0.1 (0.0-0.4) K/mm3 Baso # (Auto) 0.1 (0.0-0.1) K/mm3 Seg Neutrophils % 66.3 (40.0-70.0) % Seg Neutrophils # 4.8 (1.8-7.7) K/mm3 Sodium 139 (137-145) mmol/L Potassium 3.8 (3.6-5.0) mmol/L Chloride 99.5 (98-107) mmol/L Carbon Dioxide 23 (22-30) mmol/L Anion Gap 20 mmol/L BUN 7 (7-17) mg/dL Creatinine 0.6 (0.6-1.2) mg/dL Estimated GFR > 60 ml/min BUN/Creatinine Ratio 12 % Glucose 105 H (65-100) mg/dL Calcium 9.5 (8.4-10.2) mg/dL Total Bilirubin 0.30 (0.1-1.2) mg/dL AST 17 (5-40) units/L ALT 20 (7-56) units/L Alkaline Phosphatase 84 (35-129) units/L Troponin T < 0.010 (0.00-0.029) ng/mL Total Protein 8.5 H (6.3-8.2) g/dL Albumin 5.0 (3.9-5) g/dL Albumin/Globulin Ratio 1.4 % Urine Color Yellow (Yellow) Urine Turbidity Clear (Clear) Urine pH 6.0 (5.0-7.0) Ur Specific [place] 1.009 (1.003-1.030) Urine Protein <15 mg/dl (Negative) mg/dL Urine Glucose (UA) Neg (Negative) mg/dL Urine Ketones Neg (Negative) mg/dL Urine Blood Sm (Negative) Urine Nitrite Neg (Negative) Urine Bilirubin Neg (Negative) Urine Urobilinogen < 2.0 (<2.0) mg/dL Ur Leukocyte Esterase Neg (Negative) Urine WBC (Auto) 1.0 (0.0-6.0) /HPF Urine RBC (Auto) 2.0 (0.0-6.0) /HPF Urine Mucus Few /HPF - EKG Data EKG shows normal: sinus rhythm Rate: normal - EKG Data 09/26/21 16:47 Left axis deviation Nonspecific T wave inversion V1, V2, V3, V4 second ekg completed at 1553 interpreted at 1555 Sinus tachycardia rate of 121 Left atrial enlargement Normal axis Normal intervals No STEMI - Medical Decision Making Patient is a 41-year-old female presents emergency room stating that she was sen t by her neurologist due to an elevated blood pressure in clinic today. She states that she was going to her neurologist for follow-up for migraines and had her blood pressure taken and states that it was elevated. She states that she has been having lightheadedness. Patient states that she has been out of her clonidine for 2 days. She states that she is post to be taking clonidine 0.2 mg twice daily. She states her medical record administrator is Dr. Gutierrez. She denies any shortness of breath, chest pain, vision changes, numbness, weakness, speech disturbance, gait disturbance. Allergy to morphine. Initial vitals with mild tachycardia and elevated blood pressure. No neurological deficits on exam. Labs are stable. UA is the normal limits. No proteinuria. Patient given clonidine and hydralazine with improvement of blood pressure. initial EKG shows Left axis deviation Nonspecific T wave inversion V1, V2, V3, V4. repeat EKG shows Sinus tachycardia rate of 121, Left atrial enlargement, Normal axis, Normal intervals, No STEMI. Discussed case with Dr. Weldon, ER attending who believes tachycardia is likely secondary to clonidine and advised the patient can be discharged home and follow-up outpatient. Patient has no hypoxia. She is low risk based on Wells criteria for PE, PE unlikely, she is not having any chest pain or shortness of breath. Patient given prescription for her clonidine. Advised patient please take medication as prescribed. increase your water intake. eat a low sodium diet. incorporate 30-60 of daily exercise. follow up with a primary care doctor. follow up with general surgery. return to the emergency room for any new or worsening symptoms. Critical care attestation.: If time is entered above; I have spent that time in minutes in the direct care of this critically ill patient, excluding procedure time. ED Disposition Clinical Impression: Hypertensive urgency Disposition: 01 HOME / SELF CARE / HOMELESS Is pt being admited?: No Does the pt Need Aspirin: No Condition: Stable Instructions: Managing Your Hypertension Additional Instructions: please take medication as prescribed. increase your water intake. eat a low sodium diet. incorporate 30-60 of daily exercise. follow up with a primary care doctor. follow up with general surgery. return to the emergency room for any new or worsening symptoms. Prescriptions: cloNIDine [Catapres] 0.2 mg PO BID #60 tablet Referrals: PRIMARY MD ERINN [Primary Care Provider] - 2-3 Days GRAHAM GUTIERREZ MD [Staff Physician] - 2-3 Days Forms: Accompanied Note Time of Disposition: 16:54 Print Language: GRENADIAN
[2021-09-26 14:16] LABS: Basophils # (Auto) 0.1 K/mm3 (0.0-0.1); Basophils % (Auto) 0.9 % (0.0-1.8); Eosinophils # (Auto) 0.1 K/mm3 (0.0-0.4); Eosinophils % (Auto) 0.7 % (0.0-4.3); Hematocrit 44.6 % (30.3-42.9); Hemoglobin 14.3 gm/dl (10.1-14.3); Lymphocytes # (Auto) 1.9 K/mm3 (1.2-5.4); Lymphocytes % (Auto) 25.7 % (13.4-35.0); Mean Corpuscular HGB Conc 32 % (30-34); Mean Corpuscular Volume 76 fl (79-97); Monocytes # (Auto) 0.5 K/mm3 (0.0-0.8); Monocytes % (Auto) 6.4 % (0.0-7.3); Platelet Count 312 K/mm3 (140-440); Red Cell Distribution Width 16.5 % (13.2-15.2)
[2021-09-26] MEDS ORDERED: hydrALAZINE 100 MG TAB PO ONE (14:23)
[2021-09-26 14:30] LABS: Alanine Aminotransferase 20 units/L (7-56); Blood Urea Nitrogen 7 mg/dL (7-17); Calcium 9.5 mg/dL (8.4-10.2); Hemolysis Index 9
[2021-09-26 14:35] LABS: BUN/Creatinine Ratio 12
[2021-09-26 15:33] VITALS: BP 157/106
--- NOTE | 2021-09-28 10:18 | Electrocardiograph Report ---
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
--- NOTE | 2021-09-28 10:21 | Electrocardiograph Report ---
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
== END 2021-09-26 17:15 | disposition home or self-care (01) ==
LOC: ED 12:57
DX: I16.0 Hypertensive urgency (principal); G43.909 Migraine, unspecified, not intractable, without status migrainosus; Z90.49 Acquired absence of other specified parts of digestive tract; Z98.51 Tubal ligation status; Z90.710 Acquired absence of both cervix and uterus; Z98.890 Other specified postprocedural states; Z86.718 Personal history of other venous thrombosis and embolism; Z86.11 Personal history of tuberculosis; Z79.899 Other long term (current) drug therapy
CPT/HCPCS: 36415; 80053; 81001; 84484; 85025; 93005; 99283